=== PATIENT | male | born 1930 | race Caucasian/White ===

== ENCOUNTER 2016-04-19 08:40 | Emergency (ER) | payer MEDICARE, BC ==
--- NOTE | 2016-04-19 09:34 | RAD ---
INDICATION: Sharp RIGHT elbow pain and edema since yesterday. Limited range of motion on extension. No preceding injury. COMPARISON: No relevant prior exams available on the [facility] [place] PACS. TECHNIQUE: AP, lateral, and oblique views RIGHT elbow. REPORT: Normal articular alignment. Displaced fat pads indicating joint effusion. Diffuse moderately severe osteophytosis and mild joint space narrowing. 1.5 cm osteochondral loose body at the olecranon fossa which would account for limitation in extension. Moderate enthesophyte at the triceps insertion on the olecranon process. Negative for fracture. Moderate nonfocal soft tissue swelling. IMPRESSION: Osteoarthritis. Osteochondral loose body at the olecranon fossa would account for limitation in extension. Joint effusion.
[2016-04-19 09:59] LABS: Hematocrit 39 % (42-52); Hemoglobin 13.1 g/dl (14.0-18.0); Mean Corpuscular HGB Conc 33 g/dl (31-36); Mean Corpuscular Hemoglobin 31 pg (27-31); Mean Corpuscular Volume 93 fL (80-94); Mean Platelet Volume 7 um3 (7.4-10.4); Red Blood Count 4.26 10^6/ul (4.0-5.4); Red Cell Distribution Width 14 % (10.5-15); White Blood Count 10.3 10^3/ul (3.5-10.8)
[2016-04-19 10:11] LABS: Albumin 3.8 g/dL (3.2-5.2); BUN/Creatinine Ratio 20.6 (8-20); C Reactive Protein 36.17 mg/L (< 5.00); Calcium 9.1 mg/dL (8.6-10.3); EGFR African American 94.8 (>60); EGFR Non-African American 73.7 (>60); Globulin 3.3 g/dL (2-4); Potassium 4.5 mmol/L (3.5-5.0); Total Bilirubin 0.6 mg/dL (0.2-1.0); Total Protein 7.1 g/dL (6.4-8.9); Uric Acid 4.1 mg/dL (4.4-7.6)
[2016-04-19] MEDS ORDERED: oxyCODONE/Acetamin 5/325 MG* TAB PO ONE (10:34)
[2016-04-19] MEDS ORDERED: Ketorolac INJ* 30 MG/ML 1 ML VIAL IV PUSH ONE (10:34)
[2016-04-19 11:00] LABS: Erythrocyte Sed Rate 52 mm/Hr (0-40)
[2016-04-19 12:04] VITALS: BP 130/94
--- NOTE | 2016-04-19 12:09 | ED ---
Chinyere Kuhn Alok, scribed for Raji Medellin MD on 04/19/16 at 0950 . Upper Extremity Pain - HPI Summary HPI Summary: 86 y/o male with PMHx of gout 5 years ago presents to the ED with a sharp pain in his RUE from his elbow to his hand. This pain beginning yesterday was constant throughout the night and is aggravated by palpation. Pt denies any fever, chills, or ROJAS. In addition to gout, PMHx includes DM, HLD, and HTN. - History of Current Complaint Chief Complaint: EDExtremityUpper Stated Complaint: RT ELBOW PAIN Time Seen by Provider: 04/19/16 08:48 Hx Obtained From: Patient Onset/Duration: Started Days Ago, Atraumatic, Still Present Timing: Constant Severity Initially: Moderate Severity Currently: Moderate Pain Location: Arm - Right Character: Sharp Aggravating Factor(s): Other - palpation Alleviating Factor(s): Nothing Associated Signs & Symptoms: Positive: Other - Negative: Chills, ROJAS. Negative: Fever - Allergies/Home Medications Allergies/Adverse Reactions: Allergies Allergy/AdvReac Type Severity Reaction Status Date / Time No Known Allergies Allergy Verified 01/20/16 10:47 PMH/Surg Hx/FS Hx/Imm Hx Endocrine/Hematology History: Reports: Hx Anticoagulant Therapy - ASA, Hx Diabetes - lantus, metformin Cardiovascular History: Reports: Hx Hypercholesterolemia, Hx Hypertension Denies: Hx Congestive Heart Failure, Other Cardiovascular Problems/Disorders Respiratory History: Reports: Hx Pneumonia, Other Respiratory Problems/ Disorders - h/o pneumonia Denies: Hx Asthma, Hx Chronic Obstructive Pulmonary Disease (COPD) GI History: Denies: Other GI Disorders History: Denies: Hx Renal Disease Musculoskeletal History: Reports: Hx Arthritis - RIGHT KNEE, SHOULDERS, Hx Gout Sensory History: Reports: Hx Cataracts - both eyes, awaiting surgery, Hx Contacts or Glasses Denies: Hx Eye Injury, Hx Eye Prosthesis, Hx Glaucoma, Hx Legally Blind, Hx Macular Degeneration, Hx Vision Problem, Hx Deafness, Hx Hearing Aid, Hx Hearing Problem, Other Sensory Impairments Opthamlomology History: Reports: Hx Cataracts - both eyes, awaiting surgery, Hx Contacts or Glasses Denies: Hx Eye Injury, Hx Eye Prosthesis, Hx Glaucoma, Hx Legally Blind, Hx Macular Degeneration, Hx Vision Problem, Other Sensory Impairments Neurological History: Denies: Hx Dementia - Surgical History Surgery Procedure, Year, and Place: ARTHROSCOPIC SURGERIES ON KNEES 10 YRS AGO Hx Anesthesia Reactions: No - Immunization History Date of Tetanus Vaccine: PT STATES UNSURE Date of Influenza Vaccine: NONE Infectious Disease History: Denies: Hx Clostridium Difficile, Hx Hepatitis, Hx Human Immunodeficiency Virus (HIV), Hx of Known/Suspected MRSA, Hx Shingles, Hx Tuberculosis, Hx Known/ Suspected VRE, Hx Known/Suspected VRSA, History Other Infectious Disease, Traveled Outside the [place] in Last 30 Days - Family History Known Family History: Positive: Diabetes - Mother Negative: Cardiac Disease - Social History Alcohol Use: None Substance Use Type: Reports: None Smoking Status (MU): Never Smoked Tobacco Review of Systems Negative: Fever, Chills Positive: Other - RUE pain Negative: Headache All Other Systems Reviewed And Are Negative: Yes Physical Exam Triage Information Reviewed: Yes Vital Signs On Initial Exam: Initial Vitals Pulse Resp BP 81 16 140/69 04/19/16 10:50 04/19/16 10:50 04/19/16 10:50 Vital Signs Reviewed: Yes Appearance: Positive: Well-Appearing, No Pain Distress, Well-Nourished Skin: Positive: Warm, Skin Color Reflects Adequate Perfusion, Dry Head/Face: Positive: Normal Head/Face Inspection Eyes: Positive: Normal, EOMI, ELVIE ENT: Positive: Normal ENT inspection Neck: Positive: Supple, Nontender Respiratory/Lung Sounds: Positive: Clear to Auscultation, Breath Sounds Present Cardiovascular: Positive: Normal, RRR Abdomen Description: Positive: Nontender, Soft Bowel Sounds: Positive: Present Musculoskeletal: Positive: Limited @ - RUE ROM limited, Edema Right, Other - RUE erythema Neurological: Positive: Normal, Sensory/Motor Intact, Alert, Oriented to Person Place, Time Psychiatric: Positive: Normal, Affect/Mood Appropriate Diagnostics - Vital Signs Vital Signs Temp Pulse Resp BP Pulse Ox 04/19/16 12:05 97.3 F 04/19/16 12:00 72 94 04/19/16 11:59 130/94 04/19/16 10:50 81 16 140/69 - Laboratory Lab Results: Lab Results 04/19/16 04/19/16 04/19/16 Range/Units 09:40 09:40 09:40 WBC 10.3 (3.5-10.8) 10^3/ul RBC 4.26 (4.0-5.4) 10^6/ul Hgb 13.1 L (14.0-18.0) g/dl Hct 39 L (42-52) % MCV 93 (80-94) fL MCH 31 (27-31) pg MCHC 33 (31-36) g/dl RDW 14 (10.5-15) % Plt Count 205 (150-450) 10^3/ul MPV 7 L (7.4-10.4) um3 Neut % (Auto) 71.9 (38-83) % Lymph % (Auto) 18.1 L (25-47) % [place] % (Auto) 9.7 H (1-9) % Eos % (Auto) 0.2 (0-6) % Baso % (Auto) 0.1 (0-2) % Absolute Neuts (auto) 7.4 (1.5-7.7) 10^3/ul Absolute Lymphs (auto) 1.9 (1.0-4.8) 10^3/ul Absolute Monos (auto) 1.0 H (0-0.8) 10^3/ul Absolute Eos (auto) 0 (0-0.6) 10^3/ul Absolute Basos (auto) 0 (0-0.2) 10^3/ul Absolute Nucleated RBC 0 10^3/ul Nucleated RBC % 0 ESR 52 H (0-40) mm/Hr Sodium 132 L (133-145) mmol/L Potassium 4.5 (3.5-5.0) mmol/L Chloride 100 L (101-111) mmol/L Carbon Dioxide 25 (22-32) mmol/L Anion Gap 7 (2-11) mmol/L BUN 20 (6-24) mg/dL Creatinine 0.97 (0.67-1.17) mg/dL Est GFR ( Amer) 94.8 (>60) Est GFR (Non-Af Amer) 73.7 (>60) BUN/Creatinine Ratio 20.6 H (8-20) Glucose 210 H (70-100) mg/dL Lactic Acid 0.7 (0.5-2.0) mmol/L Uric Acid 4.1 L (4.4-7.6) mg/dL Calcium 9.1 (8.6-10.3) mg/dL Total Bilirubin 0.60 (0.2-1.0) mg/dL AST 15 (13-39) U/L ALT 9 (7-52) U/L Alkaline Phosphatase 50 (34-104) U/L C-Reactive Protein 36.17 H (< 5.00) mg/L Total Protein 7.1 (6.4-8.9) g/dL Albumin 3.8 (3.2-5.2) g/dL Globulin 3.3 (2-4) g/dL Albumin/Globulin Ratio 1.2 (1-3) Result Diagrams: 04/19/16 09:40 04/19/16 09:40 Lab Statement: Any lab studies that have been ordered have been reviewed, and results considered in the medical decision making process. - Radiology Elbow XRAY Xray Interpretation: Positive (See Comments) - IMPRESSION: Osteoarthritis. Osteochondral loose body at the olecranon fossa would account for limitation in extension. Joint effusion. Radiology Interpretation Completed By: Radiologist Course/Dx - Course Course Of Treatment: 86 y/o male with PMHx of gout 5 years ago presents to the ED with a sharp pain in his RUE from his elbow to his hand. This pain beginning yesterday was constant throughout the night and is aggravated by palpation. Pt denies any fever, chills, or ROJAS. In addition to gout, PMHx includes DM, HLD, and HTN. Assessment/Plan: Blood work shows mild anemia sodium L, 132 glucose 210 H, CRP 36.17 H elbow XRAY IMPRESSION: Osteoarthritis. Osteochondral loose body at the olecranon fossa would account for limitation in extension. Joint effusion. Pt was will be diagnosed with an episode of gout. Was given Toradol and Percocet for pain. Low suspicion of cellulitis due to elevated WBC. However recommend follow up with PCP tomorrow. In case of any edema, ertythema, or pain, will need prescription for antibiotics by PCP or ED with further assessment. I discussed all the findings and test results with the patient. Patient was instructed to return to the emergency room immediately if any of the symptoms return or worsens. Plan of care was discussed with the patient and understands and agrees. All questions were answered at patient satisfaction. There were no further complaints or concerns. Lung exam before discharge: CTA B/L. Good air exchange. No wheezing or crackles heard. CVS: S1 and S2 present. No murmurs appreciated. Patient is alert and oriented x 3. Patient is hemodynamically stable. 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 Please return to PCP or ED in case of any swelling, erythema or pain for further assessment. The documentation as recorded by the Chinyere mccabe Alok accurately reflects the service I personally performed and the decisions made by , Raji Medellin MD.
== END 2016-04-19 12:05 | disposition home or self-care (01) ==
LOC: ED 08:40
DX: M10.021 Idiopathic gout, right elbow (principal); M79.601 Pain in right arm
CPT/HCPCS: 36415; 80053; 83605; 84550; 85025; 85652; 86140; 99282; A9270-GY; J1885

== ENCOUNTER 2016-08-14 07:27 | Emergency (ER) | payer MEDICARE, BC ==
[2016-08-14] MEDS ORDERED: Cephalexin CAP* 500 MG PO ONE (08:21)
--- NOTE | 2016-08-14 08:29 | ED ---
Maggi Kuhn Rebecca, scribed for Sabas Sorto MD on 08/14/16 at 0824 . Lower Extremity - HPI Summary HPI Summary: Pt is an 86 y/o M who presents to ED c/o L ankle pain, erythema and swelling s/ p bug bite/sting. Reports he was bit on Saturday afternoon (3 days ago) and washed the area with alcohol after the bite occurred. Pain is currently moderate , ranked 6/10 and discrete to the L ankle without radiation. Denies fever, chills. PMHx DM. NKDA. - History of Current Complaint Chief Complaint: EDSoftTissueLowExtr Stated Complaint: LT ANKLE PAIN Time Seen by Provider: 08/14/16 08:12 Hx Obtained From: Patient Onset of Pain: Days - 3 days Onset/Duration: Still Present Severity Currently: Moderate Pain Intensity: 6 Pain Scale Used: 0-10 Numeric Timing: Constant Location: Is Discrete @ - L ankle Associated Signs And Symptoms: Positive: Swelling, Redness. Negative: Fever - Allergies/Home Medications Allergies/Adverse Reactions: Allergies Allergy/AdvReac Type Severity Reaction Status Date / Time No Known Allergies Allergy Verified 01/20/16 10:47 PMH/Surg Hx/FS Hx/Imm Hx Endocrine/Hematology History: Reports: Hx Anticoagulant Therapy - ASA, Hx Diabetes - lantus, metformin Cardiovascular History: Reports: Hx Hypercholesterolemia, Hx Hypertension Denies: Hx Congestive Heart Failure, Other Cardiovascular Problems/Disorders Respiratory History: Reports: Hx Pneumonia, Other Respiratory Problems/ Disorders - h/o pneumonia Denies: Hx Asthma, Hx Chronic Obstructive Pulmonary Disease (COPD) GI History: Denies: Other GI Disorders History: Denies: Hx Renal Disease Musculoskeletal History: Reports: Hx Arthritis - RIGHT KNEE, SHOULDERS, Hx Gout Sensory History: Reports: Hx Cataracts - both eyes, awaiting surgery, Hx Contacts or Glasses Denies: Hx Eye Injury, Hx Eye Prosthesis, Hx Glaucoma, Hx Legally Blind, Hx Macular Degeneration, Hx Vision Problem, Hx Deafness, Hx Hearing Aid, Hx Hearing Problem, Other Sensory Impairments Opthamlomology History: Reports: Hx Cataracts - both eyes, awaiting surgery, Hx Contacts or Glasses Denies: Hx Eye Injury, Hx Eye Prosthesis, Hx Glaucoma, Hx Legally Blind, Hx Macular Degeneration, Hx Vision Problem, Other Sensory Impairments Neurological History: Denies: Hx Dementia - Surgical History Surgery Procedure, Year, and Place: ARTHROSCOPIC SURGERIES ON KNEES 10 YRS AGO Hx Anesthesia Reactions: No - Immunization History Date of Tetanus Vaccine: PT STATES UNSURE Date of Influenza Vaccine: NONE Infectious Disease History: No Infectious Disease History: Denies: Hx Clostridium Difficile, Hx Hepatitis, Hx Human Immunodeficiency Virus (HIV), Hx of Known/Suspected MRSA, Hx Shingles, Hx Tuberculosis, Hx Known/ Suspected VRE, Hx Known/Suspected VRSA, History Other Infectious Disease, Traveled Outside the [place] in Last 30 Days - Family History Known Family History: Positive: Diabetes - Mother Negative: Cardiac Disease - Social History Alcohol Use: None Substance Use Type: Reports: None Smoking Status (MU): Former Smoker Review of Systems Negative: Fever, Chills Positive: Other - L ankle pain s/p bug bite Positive: Other - L ankle swelling and erythema s/p bug bite All Other Systems Reviewed And Are Negative: Yes Physical Exam - Summary Physical Exam Summary: General: well-appearing, no pain distress Skin: warm, dry, on the medial malleolus of the L ankle there is a 4 mm scab, some mild swelling and erythema with streaking 10 cm proximal Head: normal Eyes: EOMI, ELVIE ENT: normal Neck: supple, nontender Respiratory: CTA, breath sounds present Cardiovascular: RRR Abdomen: soft, nontender Bowel: present Musculoskeletal: Strength/ROM intact Neuro: normal, sensory/motor intact, A&O x3 Psych: affect/mood appropriate Triage Information Reviewed: Yes Vital Signs On Initial Exam: Initial Vitals Temp Pulse Resp BP Pulse Ox 97.8 F 89 16 130/66 96 08/14/16 07:29 08/14/16 07:29 08/14/16 07:29 08/14/16 07:29 08/14/16 07:29 Vital Signs Reviewed: Yes - [place] Coma Scale Coma Scale Total: 15 Diagnostics - Vital Signs Vital Signs Temp Pulse Resp BP Pulse Ox 08/14/16 07:29 97.8 F 89 16 130/66 96 - Laboratory Lab Statement: Any lab studies that have been ordered have been reviewed, and results considered in the medical decision making process. Lower Extremity Course/Dx - Course Course Of Treatment: NO CRITICAL CARE TIME. DISCHARGE HOME STABLE. - Diagnoses Provider Diagnoses: Cellulitis of left ankle Discharge - Discharge Plan Condition: Stable Disposition: HOME Prescriptions: Cephalexin CAP* [Keflex CAP*] 500 mg PO QID #40 cap Patient Education Materials: Cellulitis (ED) Referrals: Aurea Mcintyre MD [Primary Care Provider] - Additional Instructions: FOLLOW UP WITH YOUR DOCTOR. RETURN TO THE EMERGENCY DEPARTMENT FOR ANY WORSENING OF YOUR CONDITION; SPREAD OF INFECTION, YOU FEEL ILL, FEVER OR QUESTIONS OR CONCERNS. The documentation as recorded by the Maggi mccabe Rebecca accurately reflects the service I personally performed and the decisions made by me, Sabas Sorto MD.
[2016-08-14 09:45] VITALS: BP 130/72
== END 2016-08-14 09:45 | disposition home or self-care (01) ==
LOC: ED 07:27
DX: L03.116 Cellulitis of left lower limb (principal); S90.562A Insect bite (nonvenomous), left ankle, initial encounter; M25.572 Pain in left ankle and joints of left foot; Z87.891 Personal history of nicotine dependence; W57.XXXA Bitten or stung by nonvenomous insect and other nonvenomous arthropods, initial encounter; Y93.9 Activity, unspecified; Y92.9 Unspecified place or not applicable
CPT/HCPCS: 99282; A9270-GY

== ENCOUNTER 2016-09-07 16:29 | Emergency (ER) | payer MEDICARE, BC ==
[2016-09-07] MEDS ORDERED: Cephalexin CAP* 500 MG PO ONE (17:14)
[2016-09-07] MEDS ORDERED: Sulfamethox/Trimethoprim DS 800/160* TAB PO ONE (17:14)
--- NOTE | 2016-09-07 17:21 | ED ---
Upper Extremity Pain - HPI Summary HPI Summary: 86M presents with redness near right elbow for two days. He says that is started as a small area of redness underneath his elbow and has since spread. He now has pain half way down his forearm and half way up his arm. He has limited ROM of elbow due to swelling but not due to pain. He has not taken anything for pain. He does have a history of gout. He states he has had this before but that it went away on its own. He denies any injury. He denies any bug bites or abrasion to the area. He is DM. He is right handed. - History of Current Complaint Chief Complaint: EDExtremityUpper Stated Complaint: ELBOW INJURY Time Seen by Provider: 09/07/16 16:42 - Allergies/Home Medications Allergies/Adverse Reactions: Allergies Allergy/AdvReac Type Severity Reaction Status Date / Time No Known Allergies Allergy Verified 01/20/16 10:47 PMH/Surg Hx/FS Hx/Imm Hx Endocrine/Hematology History: Reports: Hx Anticoagulant Therapy - ASA, Hx Diabetes - lantus, metformin Cardiovascular History: Reports: Hx Hypercholesterolemia, Hx Hypertension Denies: Hx Congestive Heart Failure, Other Cardiovascular Problems/Disorders Respiratory History: Reports: Hx Pneumonia, Other Respiratory Problems/ Disorders - h/o pneumonia Denies: Hx Asthma, Hx Chronic Obstructive Pulmonary Disease (COPD) GI History: Denies: Other GI Disorders History: Denies: Hx Renal Disease Musculoskeletal History: Reports: Hx Arthritis - RIGHT KNEE, SHOULDERS, Hx Gout Sensory History: Reports: Hx Cataracts - both eyes, awaiting surgery, Hx Contacts or Glasses Denies: Hx Eye Injury, Hx Eye Prosthesis, Hx Glaucoma, Hx Legally Blind, Hx Macular Degeneration, Hx Vision Problem, Hx Deafness, Hx Hearing Aid, Hx Hearing Problem, Other Sensory Impairments Opthamlomology History: Reports: Hx Cataracts - both eyes, awaiting surgery, Hx Contacts or Glasses Denies: Hx Eye Injury, Hx Eye Prosthesis, Hx Glaucoma, Hx Legally Blind, Hx Macular Degeneration, Hx Vision Problem, Other Sensory Impairments Neurological History: Denies: Hx Dementia - Surgical History Surgery Procedure, Year, and Place: ARTHROSCOPIC SURGERIES ON KNEES 10 YRS AGO Hx Anesthesia Reactions: No - Immunization History Date of Tetanus Vaccine: PT STATES UNSURE Date of Influenza Vaccine: NONE Infectious Disease History: No Infectious Disease History: Denies: Hx Clostridium Difficile, Hx Hepatitis, Hx Human Immunodeficiency Virus (HIV), Hx of Known/Suspected MRSA, Hx Shingles, Hx Tuberculosis, Hx Known/ Suspected VRE, Hx Known/Suspected VRSA, History Other Infectious Disease, Traveled Outside the [place] in Last 30 Days - Family History Known Family History: Positive: None - denies family history of medical problems., Diabetes - Mother Negative: Cardiac Disease - Social History Alcohol Use: None Substance Use Type: Reports: None Smoking Status (MU): Former Smoker Review of Systems Negative: Fever Negative: Chest Pain Negative: Shortness Of Breath Positive: Edema - right elbow Positive: Rash All Other Systems Reviewed And Are Negative: Yes Physical Exam Triage Information Reviewed: Yes Vital Signs On Initial Exam: Initial Vitals Temp Pulse Resp BP Pulse Ox 98.5 F 80 20 141/61 96 09/07/16 16:34 09/07/16 16:34 09/07/16 16:34 09/07/16 16:34 09/07/16 16:34 Vital Signs Reviewed: Yes Appearance: Positive: Well-Appearing Skin: Positive: Other - 8cm by 5cm area of erythema and edema across right elbow that is warm to touch and extends beyond elbow Head/Face: Positive: Normal Head/Face Inspection Eyes: Positive: Normal, Conjunctiva Clear Respiratory/Lung Sounds: Positive: Clear to Auscultation, Breath Sounds Present Cardiovascular: Positive: Normal, RRR Musculoskeletal: Positive: Limited @ - able to bend it to greater than 90 and almost 180 but swelling limits movement, no pain with passive ROM, Edema Right - elbow mild, Other - good pulses, capillary refill< 2secs Diagnostics - Vital Signs Vital Signs Temp Pulse Resp BP Pulse Ox 09/07/16 16:58 98.5 F 80 20 141/61 96 09/07/16 16:34 98.5 F 80 20 141/61 96 - Laboratory Lab Statement: Any lab studies that have been ordered have been reviewed, and results considered in the medical decision making process. Course/Dx - Course Course Of Treatment: 86M presents with redness near right elbow for two days. He says that is started as a small area of redness underneath his elbow and has since spread. He now has pain half way down his forearm and half way up his arm. He has limited ROM of elbow due to swelling but not due to pain. He has not taken anything for pain. He does have a history of gout. He states he has had this before but that it went away on its own. He denies any injury. He denies any bug bites or abrasion to the area. He is DM. on exam area of erythema 3cm above elbow joint to 4cm below elbow joint that is warm to touch. mild edema around entire elbow. neg pain with passive motion. diff include cellulitis, gout, or septic joint. suspect likely just cellulitic as this point due to mild pain and no pain with passive movement and area of erythema is more extensive that just elbow joint. will place on bactrim and keflex and have follow up with ortho. patient understands and agrees with plan. - Diagnoses Differential Diagnosis/HQI/PQRI: Positive: Bursitis, Septic Arthritis, Other - gout, cellulitis Provider Diagnoses: Cellulitis of right upper extremity Discharge - Discharge Plan Condition: Good Disposition: HOME Patient Education Materials: Cellulitis (ED) Referrals: Aurea Mcintyre MD [Primary Care Provider] - Stanley Lobo MD [Medical Doctor] - Additional Instructions: Take Keflex three times a day for 10 days, first dose given in ED Take Bactrim twice a day for 10 days, first dose given in ED Place ice on area Follow up with primary or ortho on Saturday Return to ED if develop fever, area of redness spreads, or any new or worsening symptoms
[2016-09-07 18:24] VITALS: BP 129/66
== END 2016-09-07 18:28 | disposition home or self-care (01) ==
LOC: ED 16:29
DX: L03.113 Cellulitis of right upper limb (principal); R21 Rash and other nonspecific skin eruption; Z87.891 Personal history of nicotine dependence
CPT/HCPCS: 99282; A9270-GY

== ENCOUNTER 2016-10-25 22:26 | Emergency (ER) | payer MEDICARE, BC ==
[2016-10-25] MEDS ORDERED: Baclofen TAB* 10 MG PO ONE (22:53)
[2016-10-25] MEDS ORDERED: traMADol TAB* 50 MG PO ONE (22:53)
[2016-10-25 23:25] VITALS: BP 140/80
--- NOTE | 2016-10-26 00:54 | ED ---
Jesus Kuhn Angela, scribed for Cassandra Clifford MD on 10/25/16 at 2248 . Upper Extremity Pain - HPI Summary HPI Summary: Pt is a 86 y/o male presenting to [facility] c/o right shoulder pain s/p lifting his up after falling yesterday. Pt reports that his pain is on his right shoulder and radiates across his back. His pain is aggravated by movement and taking a deep breath. Pt notes he has limited ROM secondary to pain. He denies SOB or chest pain. PMHx: HTN, diabetes, high cholesterol, right knee replacement. 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 - History of Current Complaint Chief Complaint: EDExtremityUpper Stated Complaint: RT SHOULDER PAIN Hx Obtained From: Patient Onset/Duration: Started Hours Ago Pain Location: Other: - right shoulder pain Character: Aching Aggravating Factor(s): Movement, Other - taking a deep breath Alleviating Factor(s): Nothing Associated Signs & Symptoms: Positive: Back Pain. Negative: Swelling, Redness, Weakness, Numbness/Tingling, Chest Pain, SOB, Neck Pain - Allergies/Home Medications Allergies/Adverse Reactions: Allergies Allergy/AdvReac Type Severity Reaction Status Date / Time No Known Allergies Allergy Verified 10/25/16 22:31 PMH/Surg Hx/FS Hx/Imm Hx Endocrine/Hematology History: Reports: Hx Anticoagulant Therapy - ASA, Hx Diabetes - lantus, metformin Cardiovascular History: Reports: Hx Hypercholesterolemia, Hx Hypertension Denies: Hx Congestive Heart Failure, Other Cardiovascular Problems/Disorders Respiratory History: Reports: Hx Pneumonia, Other Respiratory Problems/ Disorders - h/o pneumonia Denies: Hx Asthma, Hx Chronic Obstructive Pulmonary Disease (COPD) GI History: Denies: Other GI Disorders History: Denies: Hx Renal Disease Musculoskeletal History: Reports: Hx Arthritis - RIGHT KNEE, SHOULDERS, Hx Gout Sensory History: Reports: Hx Cataracts - both eyes, awaiting surgery, Hx Contacts or Glasses Denies: Hx Eye Injury, Hx Eye Prosthesis, Hx Glaucoma, Hx Legally Blind, Hx Macular Degeneration, Hx Vision Problem, Hx Deafness, Hx Hearing Aid, Hx Hearing Problem, Other Sensory Impairments Opthamlomology History: Reports: Hx Cataracts - both eyes, awaiting surgery, Hx Contacts or Glasses Denies: Hx Eye Injury, Hx Eye Prosthesis, Hx Glaucoma, Hx Legally Blind, Hx Macular Degeneration, Hx Vision Problem, Other Sensory Impairments Neurological History: Denies: Hx Dementia - Surgical History Surgery Procedure, Year, and Place: ARTHROSCOPIC SURGERIES ON KNEES 10 YRS AGO Hx Anesthesia Reactions: No - Immunization History Date of Tetanus Vaccine: PT STATES UNSURE Date of Influenza Vaccine: NONE Infectious Disease History: No Infectious Disease History: Denies: Hx Clostridium Difficile, Hx Hepatitis, Hx Human Immunodeficiency Virus (HIV), Hx of Known/Suspected MRSA, Hx Shingles, Hx Tuberculosis, Hx Known/ Suspected VRE, Hx Known/Suspected VRSA, History Other Infectious Disease, Traveled Outside the [place] in Last 30 Days - Family History Known Family History: Positive: Diabetes - Mother Negative: Cardiac Disease - Social History Lives: With Family - Alcohol Use: None Substance Use Type: Reports: None Smoking Status (MU): Former Smoker Review of Systems Negative: Fever, Chills Eyes: Negative ENT: Negative Negative: Palpitations, Chest Pain Negative: Shortness Of Breath Gastrointestinal: Negative Genitourinary: Negative Positive: Other - right shoulder pain Skin: Negative Neurological: Negative All Other Systems Reviewed And Are Negative: Yes Physical Exam Triage Information Reviewed: Yes Vital Signs On Initial Exam: Initial Vitals Temp Pulse Resp BP Pulse Ox 99.0 F 93 18 147/116 97 10/25/16 22:28 10/25/16 22:28 10/25/16 22:28 10/25/16 22:28 10/25/16 22:28 Vital Signs Reviewed: Yes Appearance: Positive: Well-Appearing, No Pain Distress Skin: Positive: Warm, Skin Color Reflects Adequate Perfusion, Dry Eyes: Positive: EOMI, ELVIE ENT: Positive: Pharynx normal, TMs normal Neck: Positive: Supple, Nontender Respiratory/Lung Sounds: Positive: Clear to Auscultation, Breath Sounds Present. Negative: Rales, Rhonchi, Wheezes Cardiovascular: Positive: RRR. Negative: Murmur, Rub, Other - gallops Abdomen Description: Positive: Nontender, Soft. Negative: Distended, Guarding, Other: - rebound Bowel Sounds: Positive: Present Musculoskeletal: Positive: Other - There are trigger points by the scapula, mostly medially on both sides. There is muscle spasm with some tenderness.. Negative: Edema Left, Edema Right Neurological: Positive: Sensory/Motor Intact, Alert, Oriented to Person Place, Time, CN Intact II-III Psychiatric: Positive: Affect/Mood Appropriate Diagnostics - Vital Signs Vital Signs Temp Pulse Resp BP Pulse Ox 10/25/16 22:32 99.0 F 96 18 147/116 97 10/25/16 22:28 99.0 F 93 18 147/116 97 - Laboratory Lab Statement: Any lab studies that have been ordered have been reviewed, and results considered in the medical decision making process. Course/Dx - Course Course Of Treatment: 86 yo male who brought his after she fell today, and her lifted her resulting in pain over upper back bilaterally worse on right then left. On exam pt had trigger points/spasmed muscles with pain over b/l medial scapulas, vss - Diagnoses Provider Diagnoses: Upper back strain Discharge - Discharge Plan Condition: Stable Disposition: HOME Patient Education Materials: Muscle Strain (ED) Referrals: Aurea Mcintyre MD [Primary Care Provider] - The documentation as recorded by the Jesus mccabe Angela accurately reflects the service I personally performed and the decisions made by me, Cassandra Clifford MD.
== END 2016-10-25 23:20 | disposition home or self-care (01) ==
LOC: ED 22:26
DX: S29.012A Strain of muscle and tendon of back wall of thorax, initial encounter (principal); Z87.891 Personal history of nicotine dependence; W19.XXXA Unspecified fall, initial encounter; Y93.9 Activity, unspecified; Y92.9 Unspecified place or not applicable; Y99.9 Unspecified external cause status
CPT/HCPCS: 99282; A9270-GY

== ENCOUNTER 2016-12-23 13:30 | Emergency (ER) | payer MEDICARE, BC ==
[2016-12-23] MEDS ORDERED: NS 0.9% 1000 ML* 1,000 ML IV ONE (14:09)
[2016-12-23] MEDS ORDERED: ceFAZolin 1 GM ADVAN(*) 1 GM in NS 0.9% 50 ML* 50 ML IVPB ONE (14:10)
[2016-12-23 15:02] LABS: Hematocrit 38 % (42-52); Hemoglobin 12.6 g/dl (14.0-18.0); Mean Corpuscular HGB Conc 33 g/dl (31-36); Mean Corpuscular Hemoglobin 31 pg (27-31); Mean Corpuscular Volume 92 fL (80-94); Mean Platelet Volume 7 um3 (7.4-10.4); Red Blood Count 4.12 10^6/ul (4.0-5.4); Red Cell Distribution Width 14 % (10.5-15); White Blood Count 7.2 10^3/ul (3.5-10.8)
[2016-12-23 15:13] LABS: Albumin 3.6 g/dL (3.2-5.2); BUN/Creatinine Ratio 22.8 (8-20); C Reactive Protein 8.59 mg/L (< 5.00); Calcium 9.3 mg/dL (8.6-10.3); EGFR African American 90.5 (>60); EGFR Non-African American 70.4 (>60); Globulin 3.5 g/dL (2-4); Potassium 4.5 mmol/L (3.5-5.0); Total Bilirubin 0.3 mg/dL (0.2-1.0); Total Protein 7.1 g/dL (6.4-8.9)
[2016-12-23 17:42] VITALS: BP 138/68
--- NOTE | 2016-12-23 18:32 | ED ---
Bob uKhn SooYoung, scribed for Andriy Arnold MD on 12/23/16 at 1351 . Lower Extremity - HPI Summary HPI Summary: An 86 y/o M presents to ED with c/o RLE pain of calf first noticed today. Associated: RLE erythema on calf. Pt states he might have been scratching his legs while he slept. PMHx: HTN, DM. NKA. - History of Current Complaint Chief Complaint: EDExtremityLower Stated Complaint: RT LEG RASH Time Seen by Provider: 12/23/16 13:44 Hx Obtained From: Patient Onset of Pain: Immediate Onset/Duration: Still Present Severity Initially: Mild Severity Currently: Mild Pain Intensity: 0 Pain Scale Used: 0-10 Numeric Timing: Constant Location: Is Discrete @ - RLE Associated Signs And Symptoms: Positive: Redness - Allergies/Home Medications Allergies/Adverse Reactions: Allergies Allergy/AdvReac Type Severity Reaction Status Date / Time No Known Allergies Allergy Verified 12/23/16 13:39 PMH/Surg Hx/FS Hx/Imm Hx Previously Healthy: No Endocrine/Hematology History: Reports: Hx Anticoagulant Therapy - ASA, Hx Diabetes - lantus, metformin Cardiovascular History: Reports: Hx Hypercholesterolemia, Hx Hypertension Denies: Hx Congestive Heart Failure, Other Cardiovascular Problems/Disorders Respiratory History: Reports: Hx Pneumonia, Other Respiratory Problems/ Disorders - h/o pneumonia Denies: Hx Asthma, Hx Chronic Obstructive Pulmonary Disease (COPD) GI History: Denies: Other GI Disorders History: Denies: Hx Renal Disease Musculoskeletal History: Reports: Hx Arthritis - RIGHT KNEE, SHOULDERS, Hx Gout Sensory History: Reports: Hx Cataracts - both eyes, awaiting surgery, Hx Contacts or Glasses Denies: Hx Eye Injury, Hx Eye Prosthesis, Hx Glaucoma, Hx Legally Blind, Hx Macular Degeneration, Hx Vision Problem, Hx Deafness, Hx Hearing Aid, Hx Hearing Problem, Other Sensory Impairments Opthamlomology History: Reports: Hx Cataracts - both eyes, awaiting surgery, Hx Contacts or Glasses Denies: Hx Eye Injury, Hx Eye Prosthesis, Hx Glaucoma, Hx Legally Blind, Hx Macular Degeneration, Hx Vision Problem, Other Sensory Impairments Neurological History: Denies: Hx Dementia - Surgical History Surgery Procedure, Year, and Place: ARTHROSCOPIC SURGERIES ON KNEES 10 YRS AGO Hx Anesthesia Reactions: No - Immunization History Date of Tetanus Vaccine: PT STATES UNSURE Date of Influenza Vaccine: NONE Infectious Disease History: No Infectious Disease History: Denies: Hx Clostridium Difficile, Hx Hepatitis, Hx Human Immunodeficiency Virus (HIV), Hx of Known/Suspected MRSA, Hx Shingles, Hx Tuberculosis, Hx Known/ Suspected VRE, Hx Known/Suspected VRSA, History Other Infectious Disease, Traveled Outside the [place] in Last 30 Days - Family History Known Family History: Positive: Diabetes - Mother Negative: Cardiac Disease - Social History Occupation: Retired Lives: With Family Alcohol Use: None Hx Substance Use: No Substance Use Type: Reports: None Hx Tobacco Use: Yes Smoking Status (MU): Former Smoker Review of Systems Positive: Other - pos: pain to RLE Positive: Other - erythema to RLE All Other Systems Reviewed And Are Negative: Yes Physical Exam - Summary Physical Exam Summary: The patient is well-nourished in no acute distress and in no acute pain. The skin is warm and dry. Interior of RLE lower is diffusely erythematous with what appears to be scratch rodgers, it is mildly tender and mildly warm. HEENT: The head is normocephalic and atraumatic. The pupils are equal and reactive. The conjunctivae are clear and without drainage. Nares are patent and without drainage. Mouth reveals moist mucous membranes and the throat is without erythema and exudate. The external ears are intact. The ear canals are patent and without drainage. The tympanic membranes are intact. Neck is supple with full range of motion and non-tender. There are no carotid bruits. There is no neck vein distension. Respiratory: Chest is non-tender. Lungs are clear to auscultation and breath sounds are symmetrical and equal. Cardiovascular: Heart is regular rate and rhythm. There is no murmur or rub auscultated. There is no peripheral edema and pulses are symmetrical and equal. Abdomen: The abdomen is soft and non-tender. There are normal bowel sounds heard in all four quadrants and there is no organomegaly palpated. Musculoskeletal: There is no back pain noted. Extremities have full range of motion. There is good capillary refill. There is no peripheral edema or calf tenderness elicited. Neurological: Patient is alert and oriented to person, place and time. The patient has symmetrical motor strength in all four extremities. Cranial nerves are grossly intact. Deep tendon reflexes are symmetrical and equal in all four extremities. Psychiatric: The patient has an appropriate affect and does not exhibit any anxiety or depression. Triage Information Reviewed: Yes Vital Signs On Initial Exam: Initial Vitals Temp Pulse Resp BP Pulse Ox 97.6 F 90 16 130/64 97 12/23/16 13:37 12/23/16 13:37 12/23/16 13:37 12/23/16 13:37 12/23/16 13:37 Vital Signs Reviewed: Yes Diagnostics - Vital Signs Vital Signs Temp Pulse Resp BP Pulse Ox 12/23/16 13:37 97.6 F 90 16 130/64 97 - Laboratory Lab Results: Lab Results 12/23/16 12/23/16 Range/Units 14:31 14:31 WBC 7.2 (3.5-10.8) 10^3/ul RBC 4.12 (4.0-5.4) 10^6/ul Hgb 12.6 L (14.0-18.0) g/dl Hct 38 L (42-52) % MCV 92 (80-94) fL MCH 31 (27-31) pg MCHC 33 (31-36) g/dl RDW 14 (10.5-15) % Plt Count 312 (150-450) 10^3/ul MPV 7 L (7.4-10.4) um3 Neut % (Auto) 56.6 (38-83) % Lymph % (Auto) 34.4 (25-47) % Hancock % (Auto) 6.0 (1-9) % Eos % (Auto) 2.8 (0-6) % Baso % (Auto) 0.2 (0-2) % Absolute Neuts (auto) 4.1 (1.5-7.7) 10^3/ul Absolute Lymphs (auto) 2.5 (1.0-4.8) 10^3/ul Absolute Monos (auto) 0.4 (0-0.8) 10^3/ul Absolute Eos (auto) 0.2 (0-0.6) 10^3/ul Absolute Basos (auto) 0 (0-0.2) 10^3/ul Absolute Nucleated RBC 0 10^3/ul Nucleated RBC % 0 Sodium 135 (133-145) mmol/L Potassium 4.5 (3.5-5.0) mmol/L Chloride 103 (101-111) mmol/L Carbon Dioxide 28 (22-32) mmol/L Anion Gap 4 (2-11) mmol/L BUN 23 (6-24) mg/dL Creatinine 1.01 (0.67-1.17) mg/dL Est GFR ( Amer) 90.5 (>60) Est GFR (Non-Af Amer) 70.4 (>60) BUN/Creatinine Ratio 22.8 H (8-20) Glucose 276 H (70-100) mg/dL Calcium 9.3 (8.6-10.3) mg/dL Total Bilirubin 0.30 (0.2-1.0) mg/dL AST 12 L (13-39) U/L ALT 8 (7-52) U/L Alkaline Phosphatase 58 (34-104) U/L C-Reactive Protein 8.59 H (< 5.00) mg/L Total Protein 7.1 (6.4-8.9) g/dL Albumin 3.6 (3.2-5.2) g/dL Globulin 3.5 (2-4) g/dL Albumin/Globulin Ratio 1.0 (1-3) Result Diagrams: 12/23/16 14:31 12/23/16 14:31 Lab Statement: Any lab studies that have been ordered have been reviewed, and results considered in the medical decision making process. Lower Extremity Course/Dx - Course Course Of Treatment: Mr. Phoenix has had an itchy right lower leg for a few days and has been scratching at it. No it has gotten red and a bit painful. On exam he has developed a cellulitis. He was given his first dose of antibiotic here while labs were checked. He will be D/C'd to F/U. - Diagnoses Provider Diagnoses: Cellulitis Discharge - Discharge Plan Condition: Stable Disposition: HOME Prescriptions: Cephalexin CAP* [Keflex CAP*] 500 mg PO QID #40 cap diPHENhydraMINE CREAM 2%(NF) [Benadryl X-Strength CREAM 2 % (NF)] 1 applic TOPICAL TID #1 tube Patient Education Materials: Cephalexin (By mouth), Diphenhydramine (On the skin), Cellulitis (ED) Referrals: Aurea Mcintyre MD [Medical Doctor] - Additional Instructions: Please follow up with your primary care provider in the next 2-3 days. Please return to the ED if you experience new or worsening symptoms. The documentation as recorded by the Bob mccabe SooYoung accurately reflects the service I personally performed and the decisions made by me, Andriy Arnold MD.
== END 2016-12-23 17:41 | disposition home or self-care (01) ==
LOC: ED 13:30
DX: L03.115 Cellulitis of right lower limb (principal)
CPT/HCPCS: 36415; 80053; 85025; 86140; 87040; 99282; J0690

== ENCOUNTER 2017-03-10 09:17 | Inpatient (IN) | payer MEDICARE, BC ==
[2017-03-10] MEDS ORDERED: Ondansetron INJ* 2 MG/ML VIAL IV ONE (09:45)
[2017-03-10] MEDS ORDERED: Morphine INJ* 4 MG/ML 1 ML CARPUJECT IV ONE (09:45)
[2017-03-10] MEDS ORDERED: cefTRIAXone(*) 1 GM in NS 0.9% 50 ML* 50 ML IVPB ONE (09:47)
[2017-03-10 10:19] LABS: ABS Basophils 0.1 10^3/ul (0-0.2); ABS Eosinophils 0.1 10^3/ul (0-0.6); ABS Monocytes 1.1 10^3/ul (0-0.8); ABS Neutrophils 7.5 10^3/ul (1.5-7.7); ABS Nucleated RBC 0 10^3/ul; Eosinophil % 0.7 % (0-6); Hematocrit 41 % (42-52); Hemoglobin 13.6 g/dl (14.0-18.0); Lymphocyte % 18.6 % (25-47); Mean Corpuscular HGB Conc 34 g/dl (31-36); Mean Corpuscular Hemoglobin 31 pg (27-31); Mean Corpuscular Volume 92 fL (80-94); Mean Platelet Volume 7 um3 (7.4-10.4); Nucleated Red Blood Cells % 0; Platelet Count 233 10^3/ul (150-450); Red Blood Count 4.42 10^6/ul (4.0-5.4); Red Cell Distribution Width 15 % (10.5-15); White Blood Count 10.7 10^3/ul (3.5-10.8)
[2017-03-10 10:46] LABS: INR 1.01 (0.77-1.02)
[2017-03-10 11:09] LABS: EGFR Non-African American 81.4 (>60)
--- NOTE | 2017-03-10 11:19 | RAD ---
INDICATION: Pain and swelling. Arm pain and swelling COMPARISON: None TECHNIQUE: Duplex interrogation of the left upperextremity was performed. FINDINGS: Deep veins: The visualized jugular, visualized subclavian, axillary, brachial, radial, and ulnar veins are patent. There is normal compressibility, augmentation, and phasic flow. Superficial veins: There are no findings of superficial thrombophlebitis. The basilic vein is patent. The cephalic vein small in caliber. Soft tissues:There are no soft tissue abnormalities. IMPRESSION: No evidence of deep venous thrombosis
[2017-03-10 12:38] LABS: Urine Appearance Clear; Urine Blood 1+ (Negative); Urine Color Yellow; Urine Ketones Negative (Negative); Urine Protein Negative (Negative); Urine Specific Gravity 1.019 (1.010-1.030); Urine Urobilinogen Negative (Negative)
[2017-03-10] MEDS ORDERED: traMADol TAB* 50 MG PO PRN (12:41)
[2017-03-10] MEDS ORDERED: Acetaminophen TAB* 325 MG PO PRN (12:41)
[2017-03-10] MEDS ORDERED: oxyCODONE/Acetamin 5/325 MG* TAB PO PRN (12:52)
[2017-03-10] MEDS ORDERED: Dextrose 50% Syringe 50 ML* 25 GM/50 ML SYRINGE IV PUSH PRN (12:59)
[2017-03-10] MEDS ORDERED: Vancomycin(*) 1,250 MG in NS 0.9% 250 ML* 250 ML IVPB ONE (14:00)
[2017-03-10] MEDS: Heparin VIAL(*) 5000 UNITS/ML VIAL (FIVE THOUSAND) SUBCUT SCH ×2 (14:54→21:59)
[2017-03-10] MEDS: Insulin LISPRO* 1 UNITS UNIT SUBCUT SCH (17:27)
[2017-03-10] MEDS: Allopurinol TAB* 100 MG PO SCH (17:28)
--- NOTE | 2017-03-10 17:49 | RAD ---
INDICATION: Left elbow pain and swelling COMPARISON: None TECHNIQUE: AP, lateral, and oblique views were obtained. A true lateral view and 90 degrees of flexion cannot be obtained due to the patient's clinical condition FINDINGS: There is no definitive acute bony change. There is moderate osteoarthritis. There is traction spurring from the olecranon. There is soft tissue edema about the medial epicondyle and medial upper arm. IMPRESSION: NO ACUTE BONY FINDINGS. MODERATE OSTEOARTHRITIS. DIFFUSE SOFT TISSUE SWELLING.
--- NOTE | 2017-03-10 17:50 | RAD ---
INDICATION: Left wrist injury COMPARISON: None TECHNIQUE: AP, lateral, and oblique views were obtained. FINDINGS: There is osteopenia. There is minor osteoarthritis of first CMC articulation. There is moderate radiocarpal joint space osteoarthritis There is no acute bony change. The carpals articulate normally. There are vascular calcifications. IMPRESSION: OSTEOARTHRITIS. NO ACUTE BONY CHANGE.
--- NOTE | 2017-03-10 20:18 | HP ---
CC: Dr. Francis * [facility] MEDICINE HISTORY AND PHYSICAL: DATE OF ADMISSION: 03/10/17 PRIMARY CARE PHYSICIAN: Dr. Francis. ATTENDING PHYSICIAN: Dr. Clem Camilo * (dictation provided by Rosa Hernandez NP). CHIEF COMPLAINT: Left wrist swelling and pain. HISTORY OF PRESENT ILLNESS: Mr. Phoenix is an 86-year-old male with a past medical history of insulin-dependent diabetes, hypertension and gout, who presented to the hospital today with concerns for swelling and pain at his left wrist. The patient states this began on Saturday. He has had decreased range of motion to the left wrist. The pain and swelling continued and therefore, he presented to the emergency room for evaluation. On examination, the patient actually has redness, pain and swelling at the wrist on the left as well as the elbow. He has decreased range of motion in the hand and at the wrist and elbow joints. He denies any recent fever. He has had no chest pain. He has had no shortness of breath. He has had no nausea, vomiting, diarrhea, or abdominal pain. He has a history of gout for which he takes allopurinol routinely. He states that he has had gout per his recollection only to his right elbow. In the emergency room, the patient had white blood cell count which was normal, his ESR was 77. His CRP was 80.80. He had no fever. His vital signs are stable. He had a venous Doppler of the upper extremity which showed no DVT. PAST MEDICAL HISTORY: 1. Noninsulin-dependent diabetes. 2. Hyperlipidemia. 3. Hypertension. 4. Gout. 5. History of DVT. 6. Cellulitis. 7. Right total knee arthroplasty. The patient denies any trauma to the left arm. MEDICATIONS: 1. Insulin 37 units subcutaneously at bedtime. 2. Metformin 850 mg p.o. b.i.d. 3. Pravastatin 40 mg p.o. at bedtime. 4. Tylenol 650 mg p.o. q.6 hours p.r.n. 5. Allopurinol 200 mg p.o. q.a.m. and 200 mg p.o. q.p.m. 6. Aspirin 81 mg p.o. daily. 7. Lisinopril 10 mg p.o. daily. 8. Tramadol 50 mg p.o. q.8 hours p.r.n. ALLERGIES: To HYDROCODONE and OXYCODONE. FAMILY HISTORY: The patient reports his mother related to a CVA. His father lived at age of 93. SOCIAL HISTORY: No report of alcohol, tobacco, or drug use. He lives with his Jaja, who is the healthcare proxy. REVIEW OF SYSTEMS: A 14-point review of systems was completed with Mr. Phoenix and all those not mentioned above were negative. PHYSICAL EXAMINATION GENERAL: Mr. Phoenix is lying in the bed. He is in no acute distress. VITAL SIGNS: Blood pressure 112/69, heart rate 89, respiratory rate 16, temperature 98.2, O2 saturation 93% on room air. LUNGS: Clear to auscultation bilaterally. No accessory muscle use and good aeration. HEART: S1, S2. No murmur, rub or gallop and regular. ABDOMEN: Soft, nontender with bowel sounds positive x4. EXTREMITIES: No cyanosis. Positive for edema on the left upper extremity ranging from the hand up to just past the elbow. There is erythema noted to both the wrist and the elbow. The patient has decreased range of motion at the wrist, elbow and decreased range of motion and inability to make a fist in left hand. No other swelling is noted. The skin is intact throughout. NEURO: He is alert. He is oriented x3. He moves all extremities equally. There is no facial asymmetry or focal weakness. Extraocular movements are intact. DIAGNOSTIC STUDIES/LAB DATA: WBC 10.7, hemoglobin 13.6, hematocrit 41, platelet count 233. ESR 77. INR 1.01. Sodium 131, potassium 4.5, chloride 99 , serum carbonate 27, BUN 19, creatinine 0.89, glucose 158. CRP 80.80. Urine shows no evidence of infection. Venous Doppler study of the upper extremities read as follows: "No evidence of deep vein thrombosis." ASSESSMENT AND PLAN: Mr. Phoenix is an 86-year-old male with a past medical history of insulin-dependent diabetes, gout, hypertension and hyperlipidemia, who presents to the hospital today with concern for left upper extremity swelling and redness with decreased range of motion in the elbow, wrist and hand. Our plans are for inpatient admission as I expect his length of stay to be greater than 2 days for the followin. Septic arthritis versus cellulitis versus gout: The patient has swelling at 2 joints, which makes gout less likely and the fact that he has redness and swelling specifically over both the wrist and the elbow joint riase concern for septic arthritis. I have consulted Dr. Peres and he will be seeing the patient today. Out of concern for septic arthritis, I will be treating with vancomycin and ceftriaxone at 2 g. It is possible that the patient has a cellulitis and this certainly be covered with this regimen; plan to tailor the regimen based on the clinical course. The patient shows no evidence of sepsis. Lactic acid is normal. Vital signs are stable. The patient will have tramadol for pain. He is allergic to HYDROCODONE and OXYCODONE per the record. 2. Type 2 diabetes. Plan to continue slightly lower dose of home Lantus, as I expect him to have decreased oral intake in general during the hospitalization. He will have lispro sliding scale with meals, plan to hold the metformin. He will have consistent carbohydrate diet. 3. History of gout. Continue the allopurinol and will be working him up for that as a factor and to keep presentation as per above. 4. Hypertension. Continue lisinopril. 5. Code status is full code. TIME SPENT: Approximately 60 minutes were spent on the admission of this patient, more than half of the time was spent with the patient at the bedside reviewing the events leading up to the hospitalization, performing the physical examination, and reviewing my plan of care. ROSA HERNANDEZ NP [id number]/CPS #: [id number] RES[facility]MA
[2017-03-10] MEDS: Insulin GLARGINE(*) 1 UNITS UNIT SUBCUT SCH (21:58)
[2017-03-10] MEDS: ATROPINE 1% LEFT EYE SCH (21:58)
[2017-03-10] MEDS: TRIMETHOPRIM LEFT EYE SCH (23:32)
[2017-03-10] MEDS: POLYMYXIN B LEFT EYE SCH (23:32)
[2017-03-10] MEDS: PTO:prednisoLONE 1% OPHTH.SUSP* 5 ML OPHTH.SUSP LEFT EYE SCH (23:33)
[2017-03-11] MEDS ORDERED: Vancomycin(*) 1,250 MG IV IVPB ONE ×2 (02:00)
[2017-03-11] MEDS: PTO:prednisoLONE 1% OPHTH.SUSP* 5 ML OPHTH.SUSP LEFT EYE SCH ×4 (05:34→22:50)
[2017-03-11] MEDS: POLYMYXIN B LEFT EYE SCH ×4 (05:34→22:51)
[2017-03-11] MEDS: TRIMETHOPRIM LEFT EYE SCH ×4 (05:34→22:51)
[2017-03-11] MEDS: Heparin VIAL(*) 5000 UNITS/ML VIAL (FIVE THOUSAND) SUBCUT SCH ×3 (05:35→20:25)
[2017-03-11 06:48] LABS: ABS Basophils 0 10^3/ul (0-0.2); ABS Eosinophils 0.1 10^3/ul (0-0.6); ABS Lymphocytes 2.7 10^3/ul (1.0-4.8); ABS Monocytes 1.1 10^3/ul (0-0.8); ABS Neutrophils 6.4 10^3/ul (1.5-7.7); ABS Nucleated RBC 0 10^3/ul; Eosinophil % 0.5 % (0-6); Hematocrit 40 % (42-52); Hemoglobin 13.8 g/dl (14.0-18.0); Lymphocyte % 26.5 % (25-47); Mean Corpuscular HGB Conc 34 g/dl (31-36); Mean Corpuscular Hemoglobin 31 pg (27-31); Mean Corpuscular Volume 90 fL (80-94); Mean Platelet Volume 7 um3 (7.4-10.4); Nucleated Red Blood Cells % 0.1; Platelet Count 260 10^3/ul (150-450); Red Blood Count 4.46 10^6/ul (4.0-5.4); Red Cell Distribution Width 15 % (10.5-15); White Blood Count 10.3 10^3/ul (3.5-10.8)
[2017-03-11] MEDS: Aspirin Low Dose CHEW TAB* 81 MG PO SCH (09:07)
[2017-03-11] MEDS: Allopurinol TAB* 100 MG PO SCH ×2 (09:07→17:59)
[2017-03-11] MEDS: ATROPINE 1% LEFT EYE SCH ×2 (09:07→20:21)
[2017-03-11] MEDS: Lisinopril TAB* 10 MG PO SCH (09:07)
[2017-03-11] MEDS: Insulin LISPRO* 1 UNITS UNIT SUBCUT SCH ×3 (09:09→17:56)
--- NOTE | 2017-03-11 09:43 | ED ---
Beth Kuhn Edward, scribed for Raji Medellin MD on 03/10/17 at 0932 . Upper Extremity Pain - HPI Summary HPI Summary: 86 y/o male presents to the ED c/o severe LUE pain starting two days ago. It started mild and became more severe. Pt had clam chowder two days ago and states certain seafoods cause his gout to flare up. Associated sx: swelling and redness. The swelling, pain and redness goes from the L elbow down to the L wrist. Pt had eye surgery three days ago. Denies fevers/chills. Denies trauma. PMHx gout. - History of Current Complaint Chief Complaint: EDExtremityUpper Stated Complaint: SWOLLEN LT HAND Time Seen by Provider: 03/10/17 09:25 Hx Obtained From: Patient Mechanism Of Injury: Unknown Onset/Duration: Started Days Ago Timing: Constant - Allergies/Home Medications Allergies/Adverse Reactions: Allergies Allergy/AdvReac Type Severity Reaction Status Date / Time Hydrocodone AdvReac Altered Verified 03/10/17 14:15 Mental Status Oxycodone AdvReac Altered Verified 03/10/17 14:15 Mental Status Home Medications: Home Medications Atropine 1% OPHTH.DANUTA* 1 drop LEFT EYE BID 03/10/17 [History Confirmed 03/10/17] Polymyx/Trimethoprim OPTH* 1 drop LEFT EYE Q6HR 03/10/17 [History Confirmed ] Prednisolone Acetate (Ophth) 03/10/17 [History] prednisoLONE 1% OPHTH.SUSP* 1 drop LEFT EYE Q6HR 03/10/17 [History Confirmed ] PMH/Surg Hx/FS Hx/Imm Hx Previously Healthy: No Endocrine/Hematology History: Reports: Hx Anticoagulant Therapy - ASA, Hx Diabetes - lantus, metformin Cardiovascular History: Reports: Hx Hypercholesterolemia, Hx Hypertension Denies: Hx Congestive Heart Failure, Other Cardiovascular Problems/Disorders Respiratory History: Reports: Hx Pneumonia, Other Respiratory Problems/ Disorders - h/o pneumonia Denies: Hx Asthma, Hx Chronic Obstructive Pulmonary Disease (COPD) GI History: Denies: Other GI Disorders History: Denies: Hx Renal Disease Musculoskeletal History: Reports: Hx Arthritis - RIGHT KNEE, SHOULDERS, Hx Gout Sensory History: Reports: Hx Cataracts - both eyes, awaiting surgery, Hx Contacts or Glasses Denies: Hx Eye Injury, Hx Eye Prosthesis, Hx Glaucoma, Hx Legally Blind, Hx Macular Degeneration, Hx Vision Problem, Hx Deafness, Hx Hearing Aid, Hx Hearing Problem, Other Sensory Impairments Opthamlomology History: Reports: Hx Cataracts - both eyes, awaiting surgery, Hx Contacts or Glasses Denies: Hx Eye Injury, Hx Eye Prosthesis, Hx Glaucoma, Hx Legally Blind, Hx Macular Degeneration, Hx Vision Problem, Other Sensory Impairments Neurological History: Denies: Hx Dementia - Surgical History Surgery Procedure, Year, and Place: ARTHROSCOPIC SURGERIES ON KNEES 10 YRS AGO Hx Anesthesia Reactions: No - Immunization History Date of Tetanus Vaccine: PT STATES UNSURE Date of Influenza Vaccine: NONE Infectious Disease History: No Infectious Disease History: Denies: Hx Clostridium Difficile, Hx Hepatitis, Hx Human Immunodeficiency Virus (HIV), Hx of Known/Suspected MRSA, Hx Shingles, Hx Tuberculosis, Hx Known/ Suspected VRE, Hx Known/Suspected VRSA, History Other Infectious Disease, Traveled Outside the [place] in Last 30 Days - Family History Known Family History: Positive: Diabetes - Mother Negative: Cardiac Disease - Social History Alcohol Use: None Hx Substance Use: No Substance Use Type: Reports: None Hx Tobacco Use: Yes Smoking Status (MU): Former Smoker Review of Systems Constitutional: Negative Eyes: Negative ENT: Negative Cardiovascular: Negative Respiratory: Negative Gastrointestinal: Negative Genitourinary: Negative Positive: Arthralgia - LUE pain, Decreased ROM - LUE, Edema - LUE Positive: Other - erythema @ LUE Neurological: Negative Psychological: Normal All Other Systems Reviewed And Are Negative: Yes Physical Exam - Summary Physical Exam Summary: VITAL SIGNS: Reviewed. GENERAL: Patient is a well-developed and nourished male who is lying comfortable in the stretcher. Patient is not in any acute respiratory distress. Pt is unkempt. HEAD AND FACE: No signs of trauma. No ecchymosis, hematomas or skull depressions. No sinus tenderness. EYES: PERRLA, EOMI x 2, No injected conjunctiva, no nystagmus. EARS: Hearing grossly intact. Ear canals and tympanic membranes are within normal limits. MOUTH: Oropharynx within normal limits. NECK: Supple, trachea is midline, no adenopathy, no JVD, no carotid bruit, no c- spine tenderness, neck with full ROM. CHEST: Symmetric, no tenderness at palpation LUNGS: Clear to auscultation bilaterally. No wheezing or crackles. CVS: Regular rate and rhythm, S1 and S2 present, no murmurs or gallops appreciated. ABDOMEN: Soft, non-tender. No signs of distention. No rebound no guarding, and no masses palpated. Bowel sounds are normal. EXTREMITIES: LUE swelling and redness from the digits to the elbow, with decreased ROM. Pain is 10/10. NEURO: Alert and oriented x 3. No acute neurological deficits. Speech is normal and follows commands. SKIN: Dry and warm Triage Information Reviewed: Yes Vital Signs On Initial Exam: Initial Vitals Temp Pulse Resp BP Pulse Ox 98.5 F 103 20 132/71 96 03/10/17 09:20 03/10/17 09:20 03/10/17 09:20 03/10/17 09:20 03/10/17 09:20 Vital Signs Reviewed: Yes Diagnostics - Vital Signs Vital Signs Temp Pulse Resp BP Pulse Ox 03/10/17 09:20 98.5 F 103 20 132/71 96 - Laboratory Lab Results: Lab Results 03/10/17 03/10/17 03/10/17 Range/Units 10:04 10:04 10:04 WBC 10.7 (3.5-10.8) 10^3/ul RBC 4.42 (4.0-5.4) 10^6/ul Hgb 13.6 L (14.0-18.0) g/dl Hct 41 L (42-52) % MCV 92 (80-94) fL MCH 31 (27-31) pg MCHC 34 (31-36) g/dl RDW 15 (10.5-15) % Plt Count 233 (150-450) 10^3/ul MPV 7 L (7.4-10.4) um3 Neut % (Auto) 69.6 (38-83) % Lymph % (Auto) 18.6 L (25-47) % Mcculloch % (Auto) 10.3 H (1-9) % Eos % (Auto) 0.7 (0-6) % Baso % (Auto) 0.8 (0-2) % Absolute Neuts (auto) 7.5 (1.5-7.7) 10^3/ul Absolute Lymphs (auto) 2.0 (1.0-4.8) 10^3/ul Absolute Monos (auto) 1.1 H (0-0.8) 10^3/ul Absolute Eos (auto) 0.1 (0-0.6) 10^3/ul Absolute Basos (auto) 0.1 (0-0.2) 10^3/ul Absolute Nucleated RBC 0 10^3/ul Nucleated RBC % 0 ESR 77 H (0-40) mm/Hr INR (Anticoag Therapy) 1.01 (0.77-1.02) Sodium 131 L (133-145) mmol/L Potassium 4.5 (3.5-5.0) mmol/L Chloride 99 L (101-111) mmol/L Carbon Dioxide 27 (22-32) mmol/L Anion Gap 5 (2-11) mmol/L BUN 19 (6-24) mg/dL Creatinine 0.89 (0.67-1.17) mg/dL Est GFR ( Amer) 104.7 (>60) Est GFR (Non-Af Amer) 81.4 (>60) BUN/Creatinine Ratio 21.3 H (8-20) Glucose 158 H (70-100) mg/dL Lactic Acid (0.5-2.0) mmol/L Uric Acid 3.8 L (4.4-7.6) mg/dL Calcium 9.3 (8.6-10.3) mg/dL Total Bilirubin 0.60 (0.2-1.0) mg/dL AST 11 L (13-39) U/L ALT 6 L (7-52) U/L Alkaline Phosphatase 60 (34-104) U/L C-Reactive Protein 80.80 H (< 5.00) mg/L Total Protein 7.5 (6.4-8.9) g/dL Albumin 3.7 (3.2-5.2) g/dL Globulin 3.8 (2-4) g/dL Albumin/Globulin Ratio 1.0 (1-3) Urine Color Urine Appearance Urine pH (5-9) Ur Specific Gardiner (1.010-1.030) Urine Protein (Negative) Urine Ketones (Negative) Urine Blood (Negative) Urine Nitrate (Negative) Urine Bilirubin (Negative) Urine Urobilinogen (Negative) Ur Leukocyte Esterase (Negative) Urine WBC (Auto) (Absent) Urine RBC (Auto) (Absent) Ur Squamous Epith Cells (Absent) Urine Bacteria (Absent) Urine Glucose (Negative) 03/10/17 03/10/17 Range/Units 10:04 12:16 WBC (3.5-10.8) 10^3/ul RBC (4.0-5.4) 10^6/ul Hgb (14.0-18.0) g/dl Hct (42-52) % MCV (80-94) fL MCH (27-31) pg MCHC (31-36) g/dl RDW (10.5-15) % Plt Count (150-450) 10^3/ul MPV (7.4-10.4) um3 Neut % (Auto) (38-83) % Lymph % (Auto) (25-47) % Mcculloch % (Auto) (1-9) % Eos % (Auto) (0-6) % Baso % (Auto) (0-2) % Absolute Neuts (auto) (1.5-7.7) 10^3/ul Absolute Lymphs (auto) (1.0-4.8) 10^3/ul Absolute Monos (auto) (0-0.8) 10^3/ul Absolute Eos (auto) (0-0.6) 10^3/ul Absolute Basos (auto) (0-0.2) 10^3/ul Absolute Nucleated RBC 10^3/ul Nucleated RBC % ESR (0-40) mm/Hr INR (Anticoag Therapy) (0.77-1.02) Sodium (133-145) mmol/L Potassium (3.5-5.0) mmol/L Chloride (101-111) mmol/L Carbon Dioxide (22-32) mmol/L Anion Gap (2-11) mmol/L BUN (6-24) mg/dL Creatinine (0.67-1.17) mg/dL Est GFR ( Amer) (>60) Est GFR (Non-Af Amer) (>60) BUN/Creatinine Ratio (8-20) Glucose (70-100) mg/dL Lactic Acid 0.6 (0.5-2.0) mmol/L Uric Acid (4.4-7.6) mg/dL Calcium (8.6-10.3) mg/dL Total Bilirubin (0.2-1.0) mg/dL AST (13-39) U/L ALT (7-52) U/L Alkaline Phosphatase (34-104) U/L C-Reactive Protein (< 5.00) mg/L Total Protein (6.4-8.9) g/dL Albumin (3.2-5.2) g/dL Globulin (2-4) g/dL Albumin/Globulin Ratio (1-3) Urine Color Yellow Urine Appearance Clear Urine pH 5.0 (5-9) Ur Specific Gardiner 1.019 (1.010-1.030) Urine Protein Negative (Negative) Urine Ketones Negative (Negative) Urine Blood 1+ H (Negative) Urine Nitrate Negative (Negative) Urine Bilirubin Negative (Negative) Urine Urobilinogen Negative (Negative) Ur Leukocyte Esterase Negative (Negative) Urine WBC (Auto) Absent (Absent) Urine RBC (Auto) Trace(0-2/hpf) (Absent) Ur Squamous Epith Cells Present H (Absent) Urine Bacteria Absent (Absent) Urine Glucose 1+(50 mg/dl) H (Negative) Result Diagrams: 03/11/17 06:21 03/10/17 10:04 Lab Statement: Any lab studies that have been ordered have been reviewed, and results considered in the medical decision making process. - Ultrasound No standard instances Ultrasound Interpretation: No Acute Changes - LE POLY DOPPLER - NO EVIDENCE OF DEEP VEINOUS THROMBOSIS Ultrasound Interpretation Completed By: Radiologist - ED PHYSICIAN REVIEWS AND AGREES Course/Dx - Course Assessment/Plan: 86 y/o male presents to the ED c/o severe LUE pain starting two days ago. It started mild and became more severe. Pt had clam chowder two days ago and states certain seafoods cause his gout to flare up. Associated sx: swelling. The swelling and pain goes from the L elbow down to the L wrist. Pt had eye surgery three days ago. Denies fevers/chills. Denies trauma. PMHx gout. POLY DOPPLER LE - LE POLY DOPPLER - NO EVIDENCE OF DEEP VEINOUS THROMBOSIS. Test results are without significant abnormalities except slight anemia, ESR 77. US negative for DVT. In the ED course the pt was given iv fluids, morphine for pain and rocephin for what I think is LUE cellulitis. I discussed with Rosa Hernandez who is working with Dr. Camilo who accepted the pt for admission. - Diagnoses Differential Diagnosis/HQI/PQRI: Positive: Bursitis, Fracture (Open), Strain, Sprain Provider Diagnoses: LUE cellulitis vs. gout - Physician Notifications Discussed Care of Patient With: Clem Camilo Time Discussed With Above Provider: 11:41 Instructed by Provider To: Admit As Inpatient Discharge - Discharge Plan Condition: Stable Disposition: ADMITTED TO [facility] documentation as recorded by the Beth mccabe Edward accurately reflects the service I personally performed and the decisions made by , Raji Medellin MD.
[2017-03-11] MEDS: cefTRIAXone(*) 2 GM in NS 0.9% 100 ML* 100 ML IVPB SCH (10:39)
[2017-03-11] MEDS: Vancomycin(*) 1,250 MG IV IVPB SCH ×2 (14:23)
--- NOTE | 2017-03-11 18:01 | PN ---
Subjective Date of Service: 03/11/17 Interval History: Patient states that his arm is significantly improved on antibiotics but still has significant pain with movement. Patient denies F/C, N/V, abdominal pain, Diarrhea, patient states he feels a little constipated. Patient denies trauma to his arm. Patient denies any wound on the areas where he has swelling. Patient recently had an eye surgery and is on atropine drops which significantly hinder his eyesight. Family History: Unchanged from Admission Social History: Unchanged from Admission Past Medical History: Unchanged from Admission Objective Active Medications: Acetaminophen (Tylenol Tab*) 650 mg PO Q6H PRN PRN Reason: PAIN SCALE 6-10 Allopurinol (Zyloprim Tab*) 200 mg PO QAM [facility] Last Admin: 03/11/17 09:07 Dose: 200 mg Allopurinol (Zyloprim Tab*) 200 mg PO QPM [facility] Last Admin: 03/10/17 17:28 Dose: 200 mg Aspirin (Aspirin Low Dose Tab*) 81 mg PO DAILY [facility] Last Admin: 03/11/17 09:07 Dose: 81 mg Atropine Sulfate (Atropine 1% Ophth.Chapis*) 1 drop LEFT EYE BID [facility] Last Admin: 03/11/17 09:07 Dose: 1 drop Dextrose (D50w Syringe 50 Ml*) 12.5 gm IV PUSH .FOR FS < 60 - SS PRN PRN Reason: FS < 60 Heparin Sodium (Porcine) (Heparin Vial(*)) 5,000 units SUBCUT Q8HR [facility] Last Admin: 03/11/17 14:23 Dose: 5,000 units Ceftriaxone Sodium 2 gm/ (Sodium Chloride) 100 mls @ 200 mls/hr IVPB Q24H [facility] Last Admin: 03/11/17 10:39 Dose: 200 mls/hr Vancomycin HCl 1,250 mg/ (Sodium Chloride) 250 mls @ 166.667 mls/hr IVPB 0200, 1400 [facility] Last Admin: 03/11/17 14:23 Dose: 166.667 mls/hr Insulin Glargine (Lantus(*)) 30 units SUBCUT BEDTIME [facility] Last Admin: 03/10/17 21:58 Dose: 30 units Insulin Human Lispro (Humalog*) 0 units SUBCUT AC [facility] PRN Reason: Protocol Last Admin: 03/11/17 12:39 Dose: 3 units Lisinopril (Prinivil Tab*) 10 mg PO DAILY [facility] Last Admin: 03/11/17 09:07 Dose: 10 mg Pharmacy Profile Note (Vancomycin Trough Check) 1 note FOLLOW UP ONCE ONE Stop: 03/12/17 13:31 Polymyxin/Trimethoprim Sulfate (Polytrim Ophth*) 1 drop LEFT EYE Q6HR [facility] Last Admin: 03/11/17 12:43 Dose: 1 drop Prednisolone Acetate (Pred Forte 1%*) 1 drop LEFT EYE Q6HR [facility] Last Admin: 03/11/17 12:43 Dose: 1 drop Tramadol HCl (Ultram*) 50 mg PO Q8H PRN PRN Reason: PAIN Last Admin: 03/10/17 17:32 Dose: 50 mg Vital Signs - 8 hr 03/11/17 12:12 Temperature 98.2 F Pulse Rate 100 Respiratory 18 Rate Blood Pressure 145/69 (mmHg) O2 Sat by Pulse 94 Oximetry Oxygen Devices in Use Now: None Appearance: Patient is an 86yo male who appears stated age and is sitting in the bed in [facility]. Eyes: No Scleral Icterus, - - Left eye with significant mydriasis. Ears/Nose/Mouth/Throat: NL Teeth, Lips, Gums, Clear Oropharnyx, Mucous Membranes Moist Neck: NL Appearance and Movements; NL JVP, Trachea Midline Respiratory: Symmetrical Chest Expansion and Respiratory Effort, Clear to Auscultation, - - Diminished Cardiovascular: NL Sounds; No Murmurs; No JVD, RRR, No Edema Abdominal: NL Sounds; No Tenderness; No Distention, No Hepatosplenomegaly Lymphatic: No Cervical Adenopathy Extremities: No Clubbing, Cyanosis Skin: No Nodules or Sclerosis, - - Redness and swelling on the left wrist and elbow. Neurological: Alert and Oriented x 3, NL Sensation, NL Muscle Strength and Tone , - - CN II-XII intact except for left pupil Result Diagrams: 03/11/17 06:21 03/10/17 10:04 Additional Lab and Data: Lab Results Assess/Plan/Problems-Billing Assessment: Patient is a 86yo male with a PMH significant for NIDDM, HLD, HTN, Gout, DVT and cellulitis who presents with left arm swelling and tenderness with movement. Improving on Vancomycin and Ceftriaxone. - Patient Problems (1) Cellulitis Current Visit: Yes Status: Acute Code(s): L03.90 - CELLULITIS, UNSPECIFIED SNOMED Code(s): 582410437 Comment: Appreciate Orthopedic input. Likely cellulitis overlying wrist and elbow. Pain with movement but improving significantly. No systemic symptoms. Non-purulent. Likely streptococcal. X rays negative. No need for arthrocentesis at this point. (2) Retinal tear Current Visit: Yes Status: Acute Code(s): H33.319 - HORSESHOE TEAR OF RETINA WITHOUT DETACHMENT, UNSPECIFIED EYE SNOMED Code(s): 53744062 Comment: History of, recently repaired. Continue eye drops. (3) Gout Current Visit: Yes Status: Acute Code(s): M10.9 - GOUT, UNSPECIFIED SNOMED Code(s): 34494881 Comment: Uric acid normal. Swelling improving on antibiotics. Continue allopurinol. (4) Hyperlipidemia Current Visit: No Status: Acute Code(s): E78.5 - HYPERLIPIDEMIA, UNSPECIFIED SNOMED Code(s): 30270407 Comment: Continue statin (5) Hypertension Current Visit: No Status: Acute Code(s): I10 - ESSENTIAL (PRIMARY) HYPERTENSION SNOMED Code(s): 00018366 Comment: Normotensive. Continue antihypertensives. (6) DVT prophylaxis Current Visit: No Status: Acute Code(s): EBQ4439 - SNOMED Code(s): 740444250 Comment: Heparin sub q Status and Disposition: Admitted inpatient. Hopeful discharge tomorrow.
[2017-03-11] MEDS: Insulin GLARGINE(*) 1 UNITS UNIT SUBCUT SCH (20:22)
[2017-03-12] MEDS: Vancomycin(*) 1,250 MG IV IVPB SCH ×2 (02:05)
[2017-03-12] MEDS: PTO:prednisoLONE 1% OPHTH.SUSP* 5 ML OPHTH.SUSP LEFT EYE SCH ×2 (06:22→12:46)
[2017-03-12] MEDS: POLYMYXIN B LEFT EYE SCH ×2 (06:22→12:47)
[2017-03-12] MEDS: TRIMETHOPRIM LEFT EYE SCH ×2 (06:22→12:47)
[2017-03-12] MEDS: Heparin VIAL(*) 5000 UNITS/ML VIAL (FIVE THOUSAND) SUBCUT SCH ×2 (06:22→17:36)
[2017-03-12 07:21] LABS: ABS Basophils 0.1 10^3/ul (0-0.2); ABS Eosinophils 0.1 10^3/ul (0-0.6); ABS Lymphocytes 2.5 10^3/ul (1.0-4.8); ABS Monocytes 0.9 10^3/ul (0-0.8); ABS Neutrophils 5.2 10^3/ul (1.5-7.7); ABS Nucleated RBC 0 10^3/ul; Eosinophil % 1.5 % (0-6); Hematocrit 40 % (42-52); Hemoglobin 13.6 g/dl (14.0-18.0); Lymphocyte % 28.9 % (25-47); Mean Corpuscular HGB Conc 34 g/dl (31-36); Mean Corpuscular Hemoglobin 31 pg (27-31); Mean Corpuscular Volume 90 fL (80-94); Mean Platelet Volume 7 um3 (7.4-10.4); Nucleated Red Blood Cells % 0; Platelet Count 262 10^3/ul (150-450); Red Blood Count 4.44 10^6/ul (4.0-5.4); Red Cell Distribution Width 14 % (10.5-15); White Blood Count 8.8 10^3/ul (3.5-10.8)
[2017-03-12 07:32] LABS: EGFR Non-African American 74.6 (>60)
[2017-03-12] MEDS: Insulin LISPRO* 1 UNITS UNIT SUBCUT SCH ×2 (08:00→12:44)
--- NOTE | 2017-03-12 08:20 | PN ---
Subjective Date of Service: 03/12/17 Interval History: Patient seen and examined at bedside. He is OOB to chair. He denies fever/chills , CP, SOB, n/v/d. He does endorses some constipation. Overall, he feels his left arm has improved, though there is still pain and discomfort with movement. He reports decreased swelling in the hand, and he has better mobility of the fingers. No other acute complaints at this time. Family History: Unchanged from Admission Social History: Unchanged from Admission Past Medical History: Unchanged from Admission Objective Active Medications: Acetaminophen (Tylenol Tab*) 650 mg PO Q6H PRN PRN Reason: PAIN SCALE 6-10 Last Admin: 03/11/17 20:23 Dose: 650 mg Allopurinol (Zyloprim Tab*) 200 mg PO QAM [facility] Last Admin: 03/11/17 09:07 Dose: 200 mg Allopurinol (Zyloprim Tab*) 200 mg PO QPM [facility] Last Admin: 03/11/17 17:59 Dose: 200 mg Aspirin (Aspirin Low Dose Tab*) 81 mg PO DAILY [facility] Last Admin: 03/11/17 09:07 Dose: 81 mg Atropine Sulfate (Atropine 1% Ophth.Chapis*) 1 drop LEFT EYE BID [facility] Last Admin: 03/11/17 20:21 Dose: 1 drop Dextrose (D50w Syringe 50 Ml*) 12.5 gm IV PUSH .FOR FS < 60 - SS PRN PRN Reason: FS < 60 Heparin Sodium (Porcine) (Heparin Vial(*)) 5,000 units SUBCUT Q8HR [facility] Last Admin: 03/12/17 06:22 Dose: 5,000 units Ceftriaxone Sodium 2 gm/ (Sodium Chloride) 100 mls @ 200 mls/hr IVPB Q24H [facility] Last Admin: 03/11/17 10:39 Dose: 200 mls/hr Vancomycin HCl 1,250 mg/ (Sodium Chloride) 250 mls @ 166.667 mls/hr IVPB 0200, 1400 [facility] Last Admin: 03/12/17 02:05 Dose: 166.667 mls/hr Insulin Glargine (Lantus(*)) 30 units SUBCUT BEDTIME [facility] Last Admin: 03/11/17 20:22 Dose: 30 units Insulin Human Lispro (Humalog*) 0 units SUBCUT AC [facility] PRN Reason: Protocol Last Admin: 03/12/17 08:00 Dose: Not Given Lisinopril (Prinivil Tab*) 10 mg PO DAILY [facility] Last Admin: 03/11/17 09:07 Dose: 10 mg Pharmacy Profile Note (Vancomycin Trough Check) 1 note FOLLOW UP ONCE ONE Stop: 03/12/17 13:31 Polymyxin/Trimethoprim Sulfate (Polytrim Ophth*) 1 drop LEFT EYE Q6HR [facility] Last Admin: 03/12/17 06:22 Dose: 1 drop Prednisolone Acetate (Pred Forte 1%*) 1 drop LEFT EYE Q6HR [facility] Last Admin: 03/12/17 06:22 Dose: 1 drop Tramadol HCl (Ultram*) 50 mg PO Q8H PRN PRN Reason: PAIN Last Admin: 03/10/17 17:32 Dose: 50 mg Vital Signs - 8 hr 03/12/17 02:20 Temperature 97.9 F Pulse Rate 84 Respiratory 20 Rate Blood Pressure 109/67 (mmHg) O2 Sat by Pulse 95 Oximetry Oxygen Devices in Use Now: None Appearance: Older male, OOB to chair, in NAD Eyes: No Scleral Icterus, - - left eye mydriasis Ears/Nose/Mouth/Throat: NL Teeth, Lips, Gums, Clear Oropharnyx, Mucous Membranes Moist Neck: NL Appearance and Movements; NL JVP Respiratory: Symmetrical Chest Expansion and Respiratory Effort, Clear to Auscultation Cardiovascular: NL Sounds; No Murmurs; No JVD, RRR Abdominal: NL Sounds; No Tenderness; No Distention Extremities: No Edema, - - edema to dorsal surface of left hand, wrist, elbow; mild tenderness with palpation, some erythema Skin: No Rash or Ulcers Neurological: Alert and Oriented x 3, NL Muscle Strength and Tone Lines/Tubes/Other Access: Clean, Dry and Intact Peripheral IV Nutrition: Taking PO's Result Diagrams: 03/12/17 07:04 03/12/17 07:04 Additional Lab and Data: Lab Results Assess/Plan/Problems-Billing Assessment: Patient is a 86yo male with a PMH significant for NIDDM, HLD, HTN, Gout, DVT and cellulitis who presents with left arm swelling and tenderness with movement. Improving on Vancomycin and Ceftriaxone. - Patient Problems (1) Cellulitis Code(s): L03.90 - CELLULITIS, UNSPECIFIED Comment: Appreciate Orthopedic input. Likely cellulitis overlying wrist and elbow. Pain with movement but improving significantly, no systemic symptoms, non- purulent. Likely streptococcal. X rays negative. No need for arthrocentesis at this point. Plan to switch vanco and ceftriaxone to clindamycin with outpatient f/u. (2) Retinal tear Code(s): H33.319 - HORSESHOE TEAR OF RETINA WITHOUT DETACHMENT, UNSPECIFIED EYE Comment: History of retinal tear, recently repaired. Continue eye drops. (3) Gout Code(s): M10.9 - GOUT, UNSPECIFIED Comment: Uric acid normal. Swelling improving on antibiotics. Continue allopurinol. (4) Hyperlipidemia Code(s): E78.5 - HYPERLIPIDEMIA, UNSPECIFIED Comment: Continue statin (5) Hypertension Code(s): I10 - ESSENTIAL (PRIMARY) HYPERTENSION Comment: Normotensive. Continue antihypertensives. (6) DVT prophylaxis Comment: Heparin sub q Status and Disposition: Admitted inpatient. Plan for d/c to home.
[2017-03-12] MEDS ORDERED: Polyethylene Glycol 3350* 17 GM PACKET PO SCH (09:00)
[2017-03-12] MEDS: Aspirin Low Dose CHEW TAB* 81 MG PO SCH (09:32)
[2017-03-12] MEDS: Lisinopril TAB* 10 MG PO SCH (09:33)
[2017-03-12] MEDS: Allopurinol TAB* 100 MG PO SCH (09:33)
[2017-03-12] MEDS: ATROPINE 1% LEFT EYE SCH (09:35)
[2017-03-12] MEDS: cefTRIAXone(*) 2 GM in NS 0.9% 100 ML* 100 ML IVPB SCH (09:59)
[2017-03-12 11:43] VITALS: BP 141/77
[2017-03-12] MEDS ORDERED: Clindamycin CAP* 150 MG PO SCH (13:00)
[2017-03-12] MEDS ORDERED: Vancomycin Trough Check NOTE FOLLOW UP ONE (13:30)
--- NOTE | 2017-03-14 15:44 | DS ---
CC: Dr. Ward Flores MEDICINE DISCHARGE SUMMARY: DATE OF ADMISSION: 03/10/17 DATE OF DISCHARGE: 03/12/17 PROVIDER: Toshia Tijerina NP ATTENDING PHYSICIAN: Dr. Meli Almonte (as dictated by Toshia Tijerina NP). PRIMARY CARE PHYSICIAN: Dr. Ward Flores. PRIMARY DISCHARGE DIAGNOSIS: Cellulitis of the left upper extremity. SECONDARY DISCHARGE DIAGNOSES: 1. Recent retinal tear, status post repair. 2. Asy-tolcarx-ptyytngmu diabetes. 3. Hyperlipidemia. 4. Hypertension. 5. Gout. 6. 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 MEDICATIONS AT DISCHARGE: 1. Atropine 1% drop 1 drop to left eye b.i.d. 2. Prednisolone 1% ophthalmic suspension 1 drop to left eye q.6 hours. 3. Polytrim eyedrops 1 drop to left eye q.6 hours. 4. Allopurinol 200 mg q.a.m. and 200 mg q.p.m. 5. Tylenol 650 mg q.6 hours p.r.n. 6. Pravastatin 40 mg at bedtime. 7. Lisinopril 10 mg daily. 8. Aspirin 81 mg daily. 9. Tramadol 50 mg q.8 hours p.r.n. 10. Metformin 850 mg b.i.d. with meals. 11. Lantus 30 units at bedtime. This is a change from previous 37 units. 12. Clindamycin 300 mg four times a day x7 additional days. HOSPITAL COURSE OF STAY: For full details, please refer to the H and P provided by Rosa Hernandez NP, o n 03/10/17. In summary, this is an 86-year-old male who presented to the hospital with concerns of t he left wrist swelling and pain. It is also noted that he had swelling along the elbow and he was ad mitted with concerns for septic arthritis versus cellulitis versus gout. He was started on vancomyci n and ceftriaxone and seen by Orthopedics. Dr. Peres of [facility] consulted on the patien t and did not feel this likely represented cellulitis, it did not represent gout or septic arthritis. An arthrocentesis was not indicated at this time and the patient improved with antibiotic therapy. He did have a mild bump in his CRP from admission to discharge, but the patient clinically has impro sania. His swelling has improved and he has improved range of motion. He is afebrile. He is hemodyna mically stable. The patient was advised to follow up with labs in 3 days to ensure that his labs are appropriately improving. He was advised to continue monitoring his progress. If there is any worse robin joint pain, purulent drainage, or fever at home, he is to return immediately to the ER. The juan luis gates has verbalized understanding. He has been started on clindamycin here to complete his antibioti c therapy, was given his first dose here in the hospital. He is to follow up with his primary care irene abdi within 5 to 7 days. OUTPATIENT FOLLOWUP NEEDS: The patient has been given a script for labs for followup with results to be sent to his PCP. Again, he is to follow up closely with his PCP to ensure resolution of his cell ulitis. DIET: Consistent carbohydrate diet. ACTIVITY: As tolerated. CONDITION: Improved, stable. DISPOSITION: To home. TIME SPENT: Time spent on this discharge was approximately 40 minutes. Again, this is a very brief summary of the patient's hospital course of stay. For full details, everett adrian refer to the full medical record. If you have any further questions or need further assistance, irene whitfield feel free to contact me at . TOSHIA TIJERINA NP [id number]/[facility] #: [id number]
== END 2017-03-12 15:00 | disposition home or self-care (01) | DRG 603 ==
LOC: ED 09:17 → MED 12:49
PROVIDERS: ADMIT Internal Medicine; ATTEND Internal Medicine
DX: L03.114 Cellulitis of left upper limb (principal); E11.9 Type 2 diabetes mellitus without complications; B95.5 Unspecified streptococcus as the cause of diseases classified elsewhere; E78.5 Hyperlipidemia, unspecified; I10 Essential (primary) hypertension; M10.9 Gout, unspecified; Z79.4 Long term (current) use of insulin; Z79.84 Long term (current) use of oral hypoglycemic drugs; Z86.718 Personal history of other venous thrombosis and embolism; Z96.651 Presence of right artificial knee joint; Z79.1 Long term (current) use of non-steroidal anti-inflammatories (NSAID); Z79.82 Long term (current) use of aspirin; Z79.899 Other long term (current) drug therapy; Z88.5 Allergy status to narcotic agent; Z88.8 Allergy status to other drugs, medicaments and biological substances
CPT/HCPCS: 36415; 80048; 80053; 80202; 81003; 81015; 83605; 84550; 85025; 85610; 85652; 86140; 87040; A9270-GY; J0696; J1644; J2270; J2405; J3370

== ENCOUNTER 2017-08-04 10:05 | Emergency (ER) | payer MEDICARE, BC ==
--- NOTE | 2017-08-04 10:56 | RAD ---
INDICATION: Right knee pain COMPARISON: October 29, 2016 TECHNIQUE: AP, lateral, tunnel, and sunrise views were obtained. FINDINGS: There is right knee arthroplasty. The prosthesis appears normally seated. There is no joint effusion. IMPRESSION: THE RIGHT KNEE PROSTHESIS APPEARS NORMALLY SEATED.
--- NOTE | 2017-08-04 12:14 | ED ---
Lower Extremity - HPI Summary HPI Summary: Patient is an 87-year-old otherwise healthy male presenting to the ED with a complaint of right knee pain. History of TKR 3-[address] Lira. He states he feels "clicking" from time to time but denies any pain over the past few years. Pain began approximately 2 days ago after arising from a chair. The majority of the pain is just lateral to the right knee. Pain is a 7/10, constant and throbbing. He has been taking his tramadol with minimal relief. There is no swelling, ecchymosis, erythema or warmth to the area. Denies any fevers, sweats, chills. He is otherwise healthy and takes no medications. - History of Current Complaint Chief Complaint: EDExtremityLower Stated Complaint: RT LEG PAIN Time Seen by Provider: 08/04/17 10:11 Hx Obtained From: Patient Onset of Pain: Immediate Onset/Duration: Days Severity Initially: Moderate Severity Currently: Moderate Pain Intensity: 8 Pain Scale Used: 0-10 Numeric Timing: Constant Location: Is Discrete @ - right knee pain Character Of Pain: Aching Associated Signs And Symptoms: Positive: Knee Pain. Negative: Swelling, Redness , Bruising, Fever, Weakness Aggravating Factor(s): Standing, Ambulation Alleviating Factor(s): Rest Able to Bear Weight: Yes - Risk Factors Gout Risk Factors: Negative DVT Risk Factors: Negative Septic Arthritis Risk Factor: Negative - Allergies/Home Medications Allergies/Adverse Reactions: Allergies Allergy/AdvReac Type Severity Reaction Status Date / Time hydrocodone Allergy Altered Verified 08/04/17 10:35 Mental Status oxycodone Allergy Altered Verified 08/04/17 10:35 Mental Status PMH/Surg Hx/FS Hx/Imm Hx Previously Healthy: Yes Endocrine/Hematology History: Reports: Hx Anticoagulant Therapy - ASA, Hx Diabetes - lantus, metformin Cardiovascular History: Reports: Hx Hypercholesterolemia, Hx Hypertension Denies: Hx Congestive Heart Failure, Other Cardiovascular Problems/Disorders Respiratory History: Reports: Hx Pneumonia, Other Respiratory Problems/ Disorders - h/o pneumonia Denies: Hx Asthma, Hx Chronic Obstructive Pulmonary Disease (COPD) GI History: Denies: Other GI Disorders History: Denies: Hx Renal Disease Musculoskeletal History: Reports: Hx Arthritis - RIGHT KNEE, SHOULDERS, Hx Gout Sensory History: Reports: Hx Cataracts - both eyes, awaiting surgery, Hx Contacts or Glasses Denies: Hx Eye Injury, Hx Eye Prosthesis, Hx Glaucoma, Hx Legally Blind, Hx Macular Degeneration, Hx Vision Problem, Hx Deafness, Hx Hearing Aid, Hx Hearing Problem, Other Sensory Impairments Opthamlomology History: Reports: Hx Cataracts - both eyes, awaiting surgery, Hx Contacts or Glasses Denies: Hx Eye Injury, Hx Eye Prosthesis, Hx Glaucoma, Hx Legally Blind, Hx Macular Degeneration, Hx Vision Problem, Other Sensory Impairments Neurological History: Denies: Hx Dementia - Surgical History Surgery Procedure, Year, and Place: ARTHROSCOPIC SURGERIES ON KNEES 10 YRS AGO Hx Anesthesia Reactions: No - Immunization History Date of Tetanus Vaccine: PT STATES UNSURE Date of Influenza Vaccine: NONE Infectious Disease History: No Infectious Disease History: Denies: Hx Clostridium Difficile, Hx Hepatitis, Hx Human Immunodeficiency Virus (HIV), Hx of Known/Suspected MRSA, Hx Shingles, Hx Tuberculosis, Hx Known/ Suspected VRE, Hx Known/Suspected VRSA, History Other Infectious Disease, Traveled Outside the [place] in Last 30 Days - Family History Known Family History: Positive: None - denies family history of medical problems., Diabetes - Mother Negative: Cardiac Disease - Social History Occupation: Unemployed Lives: With Family Alcohol Use: None Hx Substance Use: No Substance Use Type: Reports: None Hx Tobacco Use: Yes Smoking Status (MU): Never Smoked Tobacco Review of Systems Constitutional: Negative Negative: Fever, Chills, Fatigue, Skin Diaphoresis ENT: Negative Negative: Palpitations, Chest Pain Negative: Shortness Of Breath, Cough Genitourinary: Negative Positive: no symptoms reported, see HPI Positive: Arthralgia, Myalgia Skin: Negative Psychological: Normal All Other Systems Reviewed And Are Negative: Yes Physical Exam Triage Information Reviewed: Yes Vital Signs On Initial Exam: Initial Vitals Temp Pulse Resp BP Pulse Ox 98.6 F 89 16 143/79 92 08/04/17 10:07 08/04/17 10:07 08/04/17 10:07 08/04/17 10:07 08/04/17 10:07 Vital Signs Reviewed: Yes Appearance: Positive: Well-Appearing, Well-Nourished Skin: Positive: Warm, Skin Color Reflects Adequate Perfusion Head/Face: Positive: Normal Head/Face Inspection Neck: Positive: Supple, Nontender, No Lymphadenopathy Respiratory/Lung Sounds: Positive: Clear to Auscultation, Breath Sounds Present Cardiovascular: Positive: Normal, RRR, Pulses are Symmetrical in both Upper and Lower Extremities Musculoskeletal: Positive: Pain @ - right lateral knee pain - worse with flexion Neurological: Positive: Speech Normal Psychiatric: Positive: Normal, Affect/Mood Appropriate AVPU Assessment: Alert Diagnostics - Vital Signs Vital Signs Temp Pulse Resp BP Pulse Ox 08/04/17 10:07 98.6 F 89 16 143/79 92 - Laboratory Lab Statement: Any lab studies that have been ordered have been reviewed, and results considered in the medical decision making process. Lower Extremity Course/Dx - Course Course Of Treatment: During the course of treatment, the patient's evaluated for right knee pain. X-ray obtained which shows S/P TKR with no other acute findings suggestive of infection or malalignment. There is no pain on deep palpation, however patient endorses pain to the right lateral knee when flexing. Symptoms resolved when extending. There is no swelling, ecchymosis, erythema or warmth to suggest infective etiology. I have advised he use ibuprofen and follow-up with one of our orthopedic physicians for further evaluation. He will return for any worsening pain, erythema or warmth to the area. He understands these return precautions. 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 Discharge - Sign-Out/Discharge Documenting (check all that apply): Discharge/Admit/Transfer - Discharge Plan Condition: Stable Disposition: HOME Prescriptions: Ibuprofen 600 mg PO TID PRN #30 tablet MDD 3 PRN Reason: Pain Patient Education Materials: Knee Pain (ED) Referrals: Kelsy Gordillo MD [Medical Doctor] - Ward Flores MD [Primary Care Provider] - Additional Instructions: Please follow up with orthopedics I have given you name and phone number Please call tomorrow for an appt Ibuprofen 600mg three times daily for pain Do not take for more than 5 days at a time - Billing Disposition and Condition Condition: STABLE Disposition: Home
[2017-08-04 13:11] VITALS: BP 120/75
== END 2017-08-04 12:44 | disposition home or self-care (01) ==
LOC: ED 10:05
DX: M25.561 Pain in right knee (principal); E11.9 Type 2 diabetes mellitus without complications; I10 Essential (primary) hypertension; Z96.651 Presence of right artificial knee joint; Z79.4 Long term (current) use of insulin; Z79.84 Long term (current) use of oral hypoglycemic drugs; Z79.82 Long term (current) use of aspirin; Z88.5 Allergy status to narcotic agent
CPT/HCPCS: 99282

== ENCOUNTER → 2017-09-05 17:26 | Emergency (ER) | payer MEDICARE, BC ==
[~2017-09-05 17:26] MED LIST: Sulfamethox/Trimethoprim DS 800/160* TAB PO ONE; Tetan/Diph/Pertus SYR(Tdap)* 0.5 ML SYR(BOOSTRIX) use SYR IM ONE
--- NOTE | 2017-09-05 18:34 | ED ---
Laceration/Wound HPI - HPI Summary HPI Summary: Patient complains of laceration to volar surface of left thumb with point of kitchen knife. Bleeding controlled. No anti-coag. Tetanus status unknown. Denies loss of sensation or function distally. Medical history is DM. - History of Current Complaint Stated Complaint: RT THUMB LAC Time Seen by Provider: 09/05/17 17:55 Hx Obtained From: Patient Mechanism of Injury: Sharp/Blunt Trauma Onset Severity: Mild Current Severity: Mild Pain Intensity: 2 Pain Scale Used: 0-10 Numeric Associated Signs & Symptoms: Pain - Additional Pertinent History Primary Care Physician: DREA - Allergy/Home Medications Allergies/Adverse Reactions: Allergies Allergy/AdvReac Type Severity Reaction Status Date / Time hydrocodone Allergy Altered Verified 09/05/17 17:40 Mental Status oxycodone Allergy Altered Verified 08/04/17 10:35 Mental Status PMH/Surg Hx/FS Hx/Imm Hx Endocrine/Hematology History: Reports: Hx Anticoagulant Therapy - ASA, Hx Diabetes - lantus, metformin Cardiovascular History: Reports: Hx Hypercholesterolemia, Hx Hypertension Denies: Hx Congestive Heart Failure, Other Cardiovascular Problems/Disorders Respiratory History: Reports: Hx Pneumonia, Other Respiratory Problems/ Disorders - h/o pneumonia Denies: Hx Asthma, Hx Chronic Obstructive Pulmonary Disease (COPD) GI History: Denies: Other GI Disorders History: Denies: Hx Renal Disease Musculoskeletal History: Reports: Hx Arthritis - RIGHT KNEE, SHOULDERS, Hx Gout Sensory History: Reports: Hx Cataracts - both eyes, awaiting surgery, Hx Contacts or Glasses Denies: Hx Eye Injury, Hx Eye Prosthesis, Hx Glaucoma, Hx Legally Blind, Hx Macular Degeneration, Hx Vision Problem, Hx Deafness, Hx Hearing Aid, Hx Hearing Problem, Other Sensory Impairments Opthamlomology History: Reports: Hx Cataracts - both eyes, awaiting surgery, Hx Contacts or Glasses Denies: Hx Eye Injury, Hx Eye Prosthesis, Hx Glaucoma, Hx Legally Blind, Hx Macular Degeneration, Hx Vision Problem, Other Sensory Impairments Neurological History: Denies: Hx Dementia - Surgical History Surgery Procedure, Year, and Place: ARTHROSCOPIC SURGERIES ON KNEES 10 YRS AGO Hx Anesthesia Reactions: No - Immunization History Date of Tetanus Vaccine: PT STATES UNSURE Date of Influenza Vaccine: NONE Infectious Disease History: No Infectious Disease History: Denies: Hx Clostridium Difficile, Hx Hepatitis, Hx Human Immunodeficiency Virus (HIV), Hx of Known/Suspected MRSA, Hx Shingles, Hx Tuberculosis, Hx Known/ Suspected VRE, Hx Known/Suspected VRSA, History Other Infectious Disease, Traveled Outside the [place] in Last 30 Days - Family History Known Family History: Positive: None - denies family history of medical problems., Diabetes - Mother Negative: Cardiac Disease - Social History Alcohol Use: None Hx Substance Use: No Substance Use Type: Reports: None Hx Tobacco Use: Yes Smoking Status (MU): Never Smoked Tobacco Review of Systems Constitutional: Negative Eyes: Negative ENT: Negative Cardiovascular: Negative Respiratory: Negative Gastrointestinal: Negative Genitourinary: Negative Musculoskeletal: Negative Skin: Other Neurological: Negative Psychological: Normal All Other Systems Reviewed And Are Negative: Yes Physical Exam - Summary Physical Exam Summary: Small 3 cm laceration to volar surface of base of left thumb. PMS intact distally.. Patient able to flex and extend, can touch tip of thumb to tips of all other fingers. Triage Information Reviewed: Yes Vital Signs On Initial Exam: Initial Vitals Temp Pulse Resp BP Pulse Ox 99.8 F 99 20 138/77 94 09/05/17 17:36 09/05/17 17:36 09/05/17 17:36 09/05/17 17:36 09/05/17 17:36 Vital Signs Reviewed: Yes Appearance: Positive: Well-Appearing Skin: Positive: Warm Head/Face: Positive: Normal Head/Face Inspection Eyes: Positive: Normal Neck: Positive: Supple Respiratory/Lung Sounds: Positive: Clear to Auscultation Cardiovascular: Positive: Normal Abdomen Description: Positive: Nontender Musculoskeletal: Positive: Normal Neurological: Positive: Normal Psychiatric: Positive: Normal AVPU Assessment: Alert - Ja Coma Scale Best Eye Response: 4 - Spontaneous Best Motor Response: 6 - Obeys Commands Best Verbal Response: 5 - Oriented Coma Scale Total: 15 Procedures - Laceration/Wound Repair 1 Location: upper extremity Description: Irregular Anesthesia: Local, 1.0% Length, Depth and Shape: 3 cm x 1 cm Betadine Prep?: No - chlorhexidine prep Irrigated w/ Saline (ccs): 30 - saline was chlorhexidine Laceration/Wound Explored: clean Debridement: minimal Number of Sutures: 5 - 4.0 etilon Layer Closure?: No Diagnostics - Vital Signs Vital Signs Temp Pulse Resp BP Pulse Ox 09/05/17 17:36 99.8 F 99 20 138/77 94 - Laboratory Lab Statement: Any lab studies that have been ordered have been reviewed, and results considered in the medical decision making process. Laceration Repair Course/Dx - Course Course Of Treatment: Patient complains of laceration to volar surface of left thumb with point of kitchen knife. Bleeding controlled. No anti-coag. Tetanus status unknown. Denies loss of sensation or function distally. Medical history is DM. Small 3 cm laceration to volar surface of base of left thumb. PMS intact distally.. Patient able to flex and extend, can touch tip of thumb to tips of all other fingers. 5 sutures. Patient started on Bactrim here in ED. Rx for Bactrim - Clinical Impression Provider Diagnoses: Laceration Discharge - Sign-Out/Discharge Documenting (check all that apply): Patient Departure - Discharge Plan Condition: Stable Disposition: HOME Prescriptions: Sulfamethox/Trimethoprim DS* [Bactrim DS 800/160 TAB*] 1 tab PO BID 10 Days #20 tab Patient Education Materials: Care For Your Stitches (ED), Laceration (ED) Referrals: Ward Flores MD [Primary Care Provider] - Additional Instructions: Take antibiotics as directed. May wash wound with warm running water and soap. Do not submerge underwater as in swimming for 4 days. Sutures out in 10 days. Follow up with primary care. Return to ED for any new or worsening symptoms. - Billing Disposition and Condition Condition: STABLE Disposition: Home
[2017-09-05 21:02] VITALS: BP 128/80
== END | disposition home or self-care (01) ==
LOC: ED 17:26
DX: S61.012A Laceration without foreign body of left thumb without damage to nail, initial encounter (principal); W26.0XXA Contact with knife, initial encounter; Y92.9 Unspecified place or not applicable
CPT/HCPCS: 90471; 90715; 99282; A9270-GY

== ENCOUNTER 2018-01-05 08:57 | Emergency (ER) | payer MEDICARE, BC ==
[2018-01-05] MEDS ORDERED: NS 0.9% 1000 ML* 1,000 ML IV ONE (09:24)
[2018-01-05] MEDS ORDERED: Meclizine TAB* 12.5 MG PO ONE (09:24)
[2018-01-05] MEDS ORDERED: Ondansetron INJ* 2 MG/ML VIAL IV ONE (09:24)
--- NOTE | 2018-01-05 09:29 | ED ---
Throat Pain/Nasal Congestion - HPI Summary HPI Summary: This patient is a 87 year old M presenting to [facility] with a chief complaint of loss of hearing out of his right ear since 2 days ago. Patient reports loss of balance, dizziness, rhinorrhea, and mild ear pain. Patient denies CP, SOB, palpitations, headaches, and post nasal drip currently (he did before). His son gave him allergy/sinus medication and it did not alleviate the symptoms. - History of Current Complaint Chief Complaint: EDGeneral Time Seen by Provider: 01/05/18 08:58 Hx Obtained From: Patient Onset/Duration: Lasting Days - 2 days ago, Still Present Associated Signs And Symptoms: Positive: Sinus Discomfort - Rhinorrhea - Allergies/Home Medications Allergies/Adverse Reactions: Allergies Allergy/AdvReac Type Severity Reaction Status Date / Time hydrocodone Allergy Altered Verified 01/05/18 09:06 Mental Status oxycodone Allergy Altered Verified 01/05/18 09:06 Mental Status PMH/Surg Hx/FS Hx/Imm Hx Endocrine/Hematology History: Reports: Hx Anticoagulant Therapy - ASA, Hx Diabetes - lantus, metformin Cardiovascular History: Reports: Hx Hypercholesterolemia, Hx Hypertension Denies: Hx Congestive Heart Failure, Other Cardiovascular Problems/Disorders Respiratory History: Reports: Hx Pneumonia, Other Respiratory Problems/ Disorders - h/o pneumonia Denies: Hx Asthma, Hx Chronic Obstructive Pulmonary Disease (COPD) GI History: Denies: Other GI Disorders History: Denies: Hx Renal Disease Musculoskeletal History: Reports: Hx Arthritis - RIGHT KNEE, SHOULDERS, Hx Gout Sensory History: Reports: Hx Cataracts - both eyes, awaiting surgery, Hx Contacts or Glasses Denies: Hx Eye Injury, Hx Eye Prosthesis, Hx Glaucoma, Hx Legally Blind, Hx Macular Degeneration, Hx Vision Problem, Hx Deafness, Hx Hearing Aid, Hx Hearing Problem, Other Sensory Impairments Opthamlomology History: Reports: Hx Cataracts - both eyes, awaiting surgery, Hx Contacts or Glasses Denies: Hx Eye Injury, Hx Eye Prosthesis, Hx Glaucoma, Hx Legally Blind, Hx Macular Degeneration, Hx Vision Problem, Other Sensory Impairments Neurological History: Denies: Hx Dementia - Surgical History Surgery Procedure, Year, and Place: ARTHROSCOPIC SURGERIES ON KNEES 10 YRS AGO Hx Anesthesia Reactions: No - Immunization History Date of Tetanus Vaccine: PT STATES UNSURE Date of Influenza Vaccine: NONE Infectious Disease History: No Infectious Disease History: Denies: Hx Clostridium Difficile, Hx Hepatitis, Hx Human Immunodeficiency Virus (HIV), Hx of Known/Suspected MRSA, Hx Shingles, Hx Tuberculosis, Hx Known/ Suspected VRE, Hx Known/Suspected VRSA, History Other Infectious Disease, Traveled Outside the [place] in Last 30 Days - Family History Known Family History: Positive: Diabetes - Mother Negative: Cardiac Disease - Social History Alcohol Use: None Hx Substance Use: No Substance Use Type: Reports: None Hx Tobacco Use: Yes Smoking Status (MU): Never Smoked Tobacco Review of Systems Positive: Ear Ache - Mild on right ear, Other - Loss of hearing out of his right ear. Loss of balance. Negative: Palpitations, Chest Pain Positive: Other - Rhinorrhea. Denies post nasal drip currently (he had it before ). . Negative: Shortness Of Breath Neurological: Other - Dizziness Negative: Headache All Other Systems Reviewed And Are Negative: Yes Physical Exam - Summary Physical Exam Summary: VITAL SIGNS: Reviewed. GENERAL: Patient is a well-developed and nourished MALE who is lying comfortable in the stretcher. Patient is not in any acute respiratory distress. HEAD AND FACE: No signs of trauma. No ecchymosis, hematomas or skull depressions. No sinus tenderness. EYES: PERRLA, EOMI x 2, No injected conjunctiva, no nystagmus. EARS: Hearing grossly intact. Ear canals and tympanic membranes are within normal limits. MOUTH: Oropharynx within normal limits. NECK: Supple, trachea is midline, no adenopathy, no JVD, no carotid bruit, no c- spine tenderness, neck with full ROM. CHEST: Symmetric, no tenderness at palpation LUNGS: Clear to auscultation bilaterally. No wheezing or crackles. CVS: Regular rate and rhythm, S1 and S2 present, no murmurs or gallops appreciated. ABDOMEN: Soft, non-tender. No signs of distention. No rebound no guarding, and no masses palpated. Bowel sounds are normal. EXTREMITIES: FROM in all major joints, no edema, no cyanosis or clubbing. NEURO: Alert and oriented x 3. No acute neurological deficits. Speech is normal and follows commands. SKIN: Dry and warm Triage Information Reviewed: Yes Vital Signs On Initial Exam: Initial Vitals Temp Pulse Resp BP Pulse Ox 98.5 F 82 14 144/68 96 01/05/18 09:02 01/05/18 09:02 01/05/18 09:02 01/05/18 09:02 01/05/18 09:02 Vital Signs Reviewed: Yes Diagnostics - Vital Signs Vital Signs Temp Pulse Resp BP Pulse Ox 01/05/18 09:02 98.5 F 82 14 144/68 96 - Laboratory Result Diagrams: 01/05/18 09:48 01/05/18 09:48 Lab Statement: Any lab studies that have been ordered have been reviewed, and results considered in the medical decision making process. - Radiology Chest X-Ray Radiology Interpretation Completed By: Radiologist - 09:56. There is likely chronic interstitial disease in the lung bases. No definite pneumonia is noted. ED Physician has reviewed this imaging report. - CT Brain CT CT Interpretation Completed By: Radiologist - 09:56. No intracranial mass or hemorrhage is noted. Ethmoid sinusitis. ED Physician has reviewed this imaging report. - EKG 09:40 Cardiac Rate: NL - 74 BPM EKG Rhythm: Sinus Rhythm EKG Comparison: No Significant Change - Similar to 06/14/2013 Summary of EKG Findings: Right bundle branch block EENT Course/Dx - Course Assessment/Plan: This patient is a 87 year old M presenting to [facility] with a chief complaint of loss of hearing out of his right ear since 2 days ago. Patient reports loss of balance, dizziness, rhinorrhea, and mild ear pain. Patient denies CP, SOB, palpitations, headaches, and post nasal drip currently ( he did before). His son gave him allergy/sinus medication and it did not alleviate the symptoms. blood work without any significant abnormality except for glucose of 318 which the patient was given insulin and IV fluids. Magnesium was 1.6 for which the patient was given magnesium by mouth. The patient also was given IV fluids, and meclizine for the dizziness. Head CT impression: No intracranial mass or hemorrhage is noted. Ethmoid sinusitis. 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 No pneumonia is noted. The patient also was given Augmentin for the acute sinusitis. I discussed all the findings and test results with the patient. Patient was instructed to return to the emergency room immediately if any of the symptoms return or worsens. Plan of care was discussed with the patient and understands and agrees. All questions were answered at patient satisfaction. There were no further complaints or concerns. Lung exam before discharge: CTA B/L. Good air exchange. No wheezing or crackles heard. CVS: S1 and S2 present. No murmurs appreciated. Patient is alert and oriented x 3. Patient is hemodynamically stable. Patient will be discharged home with follow up PCP in the next 2-3 days - Differential Diagnoses Differential Diagnoses: Cerumen Impaction, Otitis Externa, Otitis Media, Sinusitis, Other - Vertigo - Diagnoses Provider Diagnoses: Vertigo, Sinusitis, Hyperglycemia Discharge - Sign-Out/Discharge Documenting (check all that apply): Patient Departure - Discharge Plan Condition: Stable Disposition: HOME Prescriptions: Amoxicillin/Clavulanate TAB* [Augmentin TAB 875*] 875 mg PO BID #20 tab Meclizine TAB* [Antivert 12.5 TAB*] 25 mg PO TID #30 tab Patient Education Materials: Sinusitis (ED), Vertigo (ED), Diabetic Hyperglycemia (ED) Referrals: Ward Flores MD [Primary Care Provider] - 3 Days Additional Instructions: FOLLOW UP WITH YOUR PRIMARY CARE PROVIDER WITHIN ONE WEEK FOR HIGH BLOOD PRESSURE NOTED TODAY. RETURN TO THE ED FOR ANY WORSENING OR NEW SYMPTOMS - Billing Disposition and Condition Condition: STABLE Disposition: Home - Attestation Statements Document Initiated by Scribe: Yes Documenting Scribe: Eleazar Villanueva Provider For Whom Anibal is Documenting (Include Credential): Raji Medellin MD Scribe Attestation: Eleazar Kuhn scribed for Raji Medellin MD on 01/05/18 at 1842. Scribe Documentation Reviewed: Yes Provider Attestation: The documentation as recorded by the Eleazar mccabe accurately reflects the service I personally performed and the decisions made by me, Raji Medellin MD
[2018-01-05 10:06] LABS: ABS Basophils 0 10^3/ul (0-0.2); ABS Eosinophils 0.1 10^3/ul (0-0.6); ABS Lymphocytes 2.2 10^3/ul (1.0-4.8); ABS Monocytes 0.5 10^3/ul (0-0.8); ABS Neutrophils 4.5 10^3/ul (1.5-7.7); ABS Nucleated RBC 0 10^3/ul; Eosinophil % 1.7 % (0-6); Hematocrit 42 % (42-52); Hemoglobin 14.1 g/dl (14.0-18.0); Lymphocyte % 29.6 % (25-47); Mean Corpuscular HGB Conc 34 g/dl (31-36); Mean Corpuscular Hemoglobin 31 pg (27-31); Mean Corpuscular Volume 91 fL (80-94); Mean Platelet Volume 6.9 fL (7.4-10.4); Nucleated Red Blood Cells % 0; Platelet Count 240 10^3/ul (150-450); Red Blood Count 4.63 10^6/ul (4.00-5.40); Red Cell Distribution Width 14 % (10.5-15); White Blood Count 7.4 10^3/ul (3.5-10.8)
[2018-01-05 10:21] LABS: EGFR Non-African American 68.6 (>60)
[2018-01-05] MEDS ORDERED: Insulin REGULAR(*) 1 UNITS UNIT SUBCUT ONE (11:18)
[2018-01-05] MEDS ORDERED: Amoxicillin/Clavulanate TAB* 875 MG PO ONE (11:21)
[2018-01-05 11:42] LABS: Urine Appearance Clear; Urine Blood 1+ (Negative); Urine Color Yellow; Urine Ketones Negative (Negative); Urine Protein Negative (Negative); Urine Red Blood Cell 1+(3-5/hpf) (Absent); Urine Specific Gravity 1.017 (1.010-1.030); Urine Urobilinogen Negative (Negative); Urine White Blood Cell Trace(0-5/hpf) (Absent)
[2018-01-05 13:18] VITALS: BP 135/80
== END 2018-01-05 13:25 | disposition home or self-care (01) ==
LOC: ED 08:57
DX: R42 Dizziness and giddiness (principal); J01.90 Acute sinusitis, unspecified; E11.65 Type 2 diabetes mellitus with hyperglycemia; Z79.01 Long term (current) use of anticoagulants
CPT/HCPCS: 36415; 70450; 71046; 80053; 81003; 81015; 83605; 83735; 84443; 84484; 85025; 86140; 87086; 93005; 96361; 96372; 96374; 99283; A9270-GY; J2405

== ENCOUNTER 2018-01-14 10:08 | Emergency (ER) | payer MEDICARE, BC ==
--- NOTE | 2018-01-14 10:53 | ED ---
Throat Pain/Nasal Congestion - HPI Summary HPI Summary: Patient is a 87 y/o M w/ c/o right ear congestion and dizziness. Sx onset , patient was seen 01/05/18 [facility], states he was prescribed antibiotics and meclizine. He states that he has not experienced any relief in Sx after taking medications. Patient reports that Sx onset 01/01 after waking up in the morning and exacerbated the following day. In room, patient states that he cannot hear out of his right ear. He reports dizziness while standing/walking. Patient's family member states that patient "looks drunk while walking" since Sx onset. He also reports nonproductive cough and sneezing as well. FMHx of sinus problems is reported. Patient notes that he has had similar Sx in the past, had his ears cleaned which resolved Sx. He denies N/V, abdominal pain, fever. Patient called PCP today. Nurse states that PCP would not be available today or tomorrow, noted that if dizziness was severe to go to ED for evaluation. No Hx of falls is reported. On triage, pain is denied, nothing is noted to aggravate/ alleviate Sx. Home medications and allergies are reviewed. - History of Current Complaint Chief Complaint: EDGeneral Time Seen by Provider: 01/14/18 10:29 Hx Obtained From: Patient Onset/Duration: Lasting Weeks - onset 01/01/18, Still Present, Worse Since - day after Sx onset Severity: Moderate Associated Signs And Symptoms: Positive: Negative Cough: Nonproductive - Allergies/Home Medications Allergies/Adverse Reactions: Allergies Allergy/AdvReac Type Severity Reaction Status Date / Time hydrocodone Allergy Altered Verified 01/05/18 09:06 Mental Status oxycodone Allergy Altered Verified 01/05/18 09:06 Mental Status PMH/Surg Hx/FS Hx/Imm Hx Endocrine/Hematology History: Reports: Hx Anticoagulant Therapy - ASA, Hx Diabetes - lantus, metformin Cardiovascular History: Reports: Hx Hypercholesterolemia, Hx Hypertension Denies: Hx Congestive Heart Failure, Other Cardiovascular Problems/Disorders Respiratory History: Reports: Hx Pneumonia, Other Respiratory Problems/ Disorders - h/o pneumonia Denies: Hx Asthma, Hx Chronic Obstructive Pulmonary Disease (COPD) GI History: Denies: Other GI Disorders History: Denies: Hx Renal Disease Musculoskeletal History: Reports: Hx Arthritis - RIGHT KNEE, SHOULDERS, Hx Gout Sensory History: Reports: Hx Cataracts - both eyes, awaiting surgery, Hx Contacts or Glasses Denies: Hx Eye Injury, Hx Eye Prosthesis, Hx Glaucoma, Hx Legally Blind, Hx Macular Degeneration, Hx Vision Problem, Hx Deafness, Hx Hearing Aid, Hx Hearing Problem, Other Sensory Impairments Opthamlomology History: Reports: Hx Cataracts - both eyes, awaiting surgery, Hx Contacts or Glasses Denies: Hx Eye Injury, Hx Eye Prosthesis, Hx Glaucoma, Hx Legally Blind, Hx Macular Degeneration, Hx Vision Problem, Other Sensory Impairments Neurological History: Denies: Hx Dementia - Surgical History Surgery Procedure, Year, and Place: ARTHROSCOPIC SURGERIES ON KNEES 10 YRS AGO Hx Anesthesia Reactions: No - Immunization History Date of Tetanus Vaccine: PT STATES UNSURE Date of Influenza Vaccine: NONE Infectious Disease History: No Infectious Disease History: Denies: Hx Clostridium Difficile, Hx Hepatitis, Hx Human Immunodeficiency Virus (HIV), Hx of Known/Suspected MRSA, Hx Shingles, Hx Tuberculosis, Hx Known/ Suspected VRE, Hx Known/Suspected VRSA, History Other Infectious Disease, Traveled Outside the [place] in Last 30 Days - Family History Known Family History: Positive: Diabetes - Mother, Other - FMHx of sinus conditions Negative: Cardiac Disease - Social History Alcohol Use: None Hx Substance Use: No Substance Use Type: Reports: None Hx Tobacco Use: Yes Smoking Status (MU): Never Smoked Tobacco Review of Systems Negative: Fever Positive: Other - right ear congestion Positive: Cough - nonproductive , Other - sneezing Negative: Abdominal Pain, Vomiting, Nausea Neurological: Other - POSITIVE - DIZZINESS All Other Systems Reviewed And Are Negative: Yes Physical Exam - Summary Physical Exam Summary: Appearance: Well-appearing, Well-nourished, lying in bed comfortably Skin: Warm, dry, no obvious rash Eyes: sclera anicteric, no conjunctival pallor ENT: mucous membranes moist, pharynx appears normal. Ear canals and are clear and free of wax. TMs are pearly bilaterally with normal landmarks visible. Neck: Supple, nontender Respiratory: Clear to auscultation, no signs of respiratory distress Cardiovascular: Normal S1, S2. No murmurs. Normal distal pulses in tibial and radial bilaterally. Abdomen: Soft, nontender, normal active bowel sounds present Musculoskeletal: Normal, Strength/ROM Intact, Motor function in all 4 extremities is normal and symmetric. There is no rigidity or tremor noted. Neurological: A&Ox3, awake and alert, mentation is normal, speech is fluent and appropriate, Level of consciousness nml. The patient is alert and oriented. Cranial nerves are grossly intact. Gaze is conjugate and without nystagmus. Peripheral vision is intact to confrontation. There are no gross sensory abnormalities to light touch. There is no fine motor ataxia. Some trouble with ambulation, cannot do so without support. GCS 15, NIH 0 Psychiatric: affect is normal, does not appear anxious or depressed Triage Information Reviewed: Yes Vital Signs On Initial Exam: Initial Vitals Temp Pulse Resp BP Pulse Ox 98.5 F 83 18 125/85 97 01/14/18 10:12 01/14/18 10:12 01/14/18 10:12 01/14/18 10:12 01/14/18 10:12 Vital Signs Reviewed: Yes - Allen Coma Scale Best Eye Response: 4 - Spontaneous Best Motor Response: 6 - Obeys Commands Best Verbal Response: 5 - Oriented Coma Scale Total: 15 Diagnostics - Vital Signs Vital Signs Temp Pulse Resp BP Pulse Ox 01/14/18 10:12 98.5 F 83 18 125/85 97 - Laboratory Result Diagrams: 01/14/18 11:57 01/14/18 11:57 Lab Statement: Any lab studies that have been ordered have been reviewed, and results considered in the medical decision making process. - Radiology BRAIN MRI Radiology Interpretation Completed By: Radiologist Summary of Radiographic Findings: BRAIN MRI IMPRESSION: No restriction of diffusion is noted although central and cortical atrophy is. noted. There appears to be mild ethmoid sinusitis noted. This report was reviewed by ED physician. - EKG 1150 Cardiac Rate: NL - rate of 76 BPM EKG Rhythm: Sinus Rhythm Summary of EKG Findings: EKG shows sinus rhythm with rate of 76 BPM, right bundle branch block, old inferior infarct. EENT Course/Dx - Course Course Of Treatment: Patient is a 87 y/o M w/ c/o right ear congestion and dizziness. Sx onset 01/01/18, patient was seen 01/05/18 [facility], states he was prescribed antibiotics and meclizine. He states that he has not experienced any relief in Sx after taking medications. Patient reports that Sx onset 01/01 after waking up in the morning and exacerbated the following day. In room, patient states that he cannot hear out of his right ear. He reports dizziness while standing/walking. Patient's family member states that patient "looks drunk while walking" since Sx onset. He also reports nonproductive cough and sneezing as well. FMHx of sinus problems is reported. Patient notes that he has had similar Sx in the past, had his ears cleaned which resolved Sx. He denies N/ V, abdominal pain, fever. Patient called PCP today. Nurse states that PCP would not be available today or tomorrow, noted that if dizziness was severe to go to ED for evaluation. No Hx of falls is reported. On physical exam, NIH 0, GCS 15. There is no fine motor ataxia. Some trouble with ambulation, cannot do so without support. Labs showed Hct 41, MPV 6.7, INR 1.04, lactic acid 0.6. BRAIN MRI IMPRESSION: No restriction of diffusion is noted although central and cortical atrophy is. noted. There appears to be mild ethmoid sinusitis noted. EKG shows sinus rhythm with rate of 76 BPM, right bundle branch block, old inferior infarct. Patient was discharged to home and advised to follow up with specialist for vestibular rehabilitation if Sx do not appear to be improving. - Diagnoses Provider Diagnoses: Peripheral vertigo Discharge - Sign-Out/Discharge Documenting (check all that apply): Patient Departure - discharge - Discharge Plan Condition: Stable Disposition: HOME Patient Education Materials: Benign Paroxysmal Positional Vertigo (ED) Referrals: Ward Flores MD [Primary Care Provider] - Additional Instructions: This problem usually gets better on its own within a week, but it can last longer, even several weeks. Be careful when you get up that you have something to hold onto. If it does not seem to be improving your doctor can refer you to a specialist for vestibular rehabilitation. - Billing Disposition and Condition Condition: STABLE Disposition: Home - Attestation Statements Document Initiated by Anibal: Yes Documenting Scribe: ANT PERKINS Provider For Whom Anibal is Documenting (Include Credential): BRIANNA CUMMINGS MD Scribe Attestation: ANT Kuhn , scribed for BRIANNA CUMMINGS MD on 01/15/18 at 1005. Scribe Documentation Reviewed: Yes Provider Attestation: The documentation as recorded by the ANT mccabe accurately reflects the service I personally performed and the decisions made by me, BRIANNA CUMMINGS MD Status of Scribe Document: Viewed NIH Scale - NIH Scale Level of Consciousness: Alert/Keenly Responsive Ask Patient the Month and His/Her Age: Both Correct Ask Pt to Open/Close Eyes and Chief Client Officer/Release Non-Paretic Hand: Both Correctly Best Gaze (Only Horizontal Eye Movement): Normal Visual Field Testing: No Visual Loss Facial Paresis-Pt to Smile & Close Eyes or Grimace Symmetry: Normal/Symmetrical Motor Function - Right Arm: No Drift-Holds 10 Seconds Motor Function - Left Arm: No Drift-Holds 10 Seconds Motor Function - Right Leg: No Drift-Holds 10 Seconds Motor Function - Left Leg: No Drift-Holds 10 Seconds Limb Ataxia-Must be out of Proportion to Weakness Present: Absent Sensory (Use Pinprick to Test Arms/Legs/Trunk/Face): Normal Best Language (Describe Picture, Name Items): No Aphasia Dysarthria (Read Several Words): Normal Extinction and Inattention: No Abnormality Total Score: 0
[2018-01-14 12:07] LABS: ABS Basophils 0 10^3/ul (0-0.2); ABS Eosinophils 0.2 10^3/ul (0-0.6); ABS Lymphocytes 2.5 10^3/ul (1.0-4.8); ABS Monocytes 0.6 10^3/ul (0-0.8); ABS Neutrophils 3.7 10^3/ul (1.5-7.7); ABS Nucleated RBC 0 10^3/ul; Eosinophil % 2.6 %; Hematocrit 41 % (42-52); Hemoglobin 14.1 g/dl (14.0-18.0); Lymphocyte % 35.8 %; Mean Corpuscular HGB Conc 34 g/dl (31-36); Mean Corpuscular Hemoglobin 31 pg (27-31); Mean Corpuscular Volume 90 fL (80-94); Mean Platelet Volume 6.7 fL (7.4-10.4); Nucleated Red Blood Cells % 0.2; Platelet Count 242 10^3/ul (150-450); Red Blood Count 4.57 10^6/ul (4.00-5.40); Red Cell Distribution Width 14 % (10.5-15)
[2018-01-14 12:17] LABS: INR 1.04 (0.77-1.02)
[2018-01-14 12:30] LABS: EGFR Non-African American 84.5 (>60)
[2018-01-14 12:36] VITALS: BP 136/77
== END 2018-01-14 12:35 | disposition home or self-care (01) ==
LOC: ED 10:08
DX: H81.391 Other peripheral vertigo, right ear (principal); E78.00 Pure hypercholesterolemia, unspecified; I10 Essential (primary) hypertension; Z79.82 Long term (current) use of aspirin; E11.8 Type 2 diabetes mellitus with unspecified complications; Z79.84 Long term (current) use of oral hypoglycemic drugs
CPT/HCPCS: 36415; 70551; 80053; 83605; 84484; 85025; 85610; 93005; 99282

== ENCOUNTER 2018-08-11 09:33 | Emergency (ER) | payer MEDICARE, BC ==
[2018-08-11 10:38] VITALS: BP 138/77
--- NOTE | 2018-08-11 10:49 | ED ---
Upper Extremity Pain - HPI Summary HPI Summary: Patient is an 88-year-old male presenting to the ED with right elbow injury. He states last evening he was attempting to work on his lawnmower and reached up and felt like he twisted something in the elbow. Since that time the area has been more swollen and painful. Patient is unable to extend fully, however is able to flex. He is endorsing pain to the posterior portion of the elbow without numbness or tingling, erythema or ecchymosis to the area. He has never injured the elbow in the past. He takes tramadol at home for pain and his taken this for his elbow, however has not tried anti-inflammatories. He denies any other pain, injuries or concerns. - History of Current Complaint Chief Complaint: EDExtremityUpper Stated Complaint: ARM SWELLING Time Seen by Provider: 08/11/18 09:38 Hx Obtained From: Patient Mechanism Of Injury: Twisted Onset/Duration: Started Hours Ago Timing: Constant Severity Initially: Moderate Severity Currently: Moderate Pain Location: Elbow Character: Aching Aggravating Factor(s): Movement, Lifting, Flexion, Extension, Internal/External Rotation Alleviating Factor(s): Rest, Ice Associated Signs & Symptoms: Positive: Swelling. Negative: Redness, Bruising, Numbness/Tingling Related History: Dominant Hand Right - Risk Factors Non-Orthopedic Risk Factor: Negative DVT Risk Factors: Negative Compartment Syndrome Risk Factors: Pain - Allergies/Home Medications Allergies/Adverse Reactions: Allergies Allergy/AdvReac Type Severity Reaction Status Date / Time hydrocodone Allergy Altered Verified 08/11/18 09:34 Mental Status oxycodone Allergy Altered Verified 08/11/18 09:34 Mental Status PMH/Surg Hx/FS Hx/Imm Hx Previously Healthy: Yes Endocrine/Hematology History: Reports: Hx Anticoagulant Therapy - ASA, Hx Diabetes - lantus, metformin Cardiovascular History: Reports: Hx Hypercholesterolemia, Hx Hypertension Denies: Hx Congestive Heart Failure, Hx Pacemaker/ICD, Other Cardiovascular Problems/Disorders Respiratory History: Reports: Hx Pneumonia, Other Respiratory Problems/ Disorders - h/o pneumonia Denies: Hx Asthma, Hx Chronic Obstructive Pulmonary Disease (COPD) GI History: Denies: Other GI Disorders History: Denies: Hx Renal Disease Musculoskeletal History: Reports: Hx Arthritis - RIGHT KNEE, SHOULDERS, Hx Gout Sensory History: Reports: Hx Cataracts - both eyes, awaiting surgery, Hx Contacts or Glasses Denies: Hx Eye Injury, Hx Eye Prosthesis, Hx Glaucoma, Hx Legally Blind, Hx Macular Degeneration, Hx Vision Problem, Hx Deafness, Hx Hearing Aid, Hx Hearing Problem, Other Sensory Impairments Opthamlomology History: Reports: Hx Cataracts - both eyes, awaiting surgery, Hx Contacts or Glasses Denies: Hx Eye Injury, Hx Eye Prosthesis, Hx Glaucoma, Hx Legally Blind, Hx Macular Degeneration, Hx Vision Problem, Other Sensory Impairments Neurological History: Denies: Hx Dementia Psychiatric History: Denies: Hx Panic Disorder - Surgical History Surgery Procedure, Year, and Place: ARTHROSCOPIC SURGERIES ON KNEES 10 YRS AGO Hx Anesthesia Reactions: No - Immunization History Date of Tetanus Vaccine: PT STATES UNSURE Date of Influenza Vaccine: NONE Hx Pertussis Vaccination: No Immunizations Up to Date: Yes Infectious Disease History: No Infectious Disease History: Denies: Hx Clostridium Difficile, Hx Hepatitis, Hx Human Immunodeficiency Virus (HIV), Hx of Known/Suspected MRSA, Hx Shingles, Hx Tuberculosis, Hx Known/ Suspected VRE, Hx Known/Suspected VRSA, History Other Infectious Disease, Traveled Outside the [place] in Last 30 Days - Family History Known Family History: Positive: Diabetes - Mother, Other - FMHx of sinus conditions Negative: Cardiac Disease - Social History Occupation: Unemployed Lives: With Family Alcohol Use: None Hx Substance Use: No Substance Use Type: Reports: None Hx Tobacco Use: Yes Smoking Status (MU): Never Smoked Tobacco Review of Systems Constitutional: Negative Negative: Fever, Chills, Fatigue, Skin Diaphoresis Negative: Palpitations, Chest Pain Negative: Shortness Of Breath, Cough Genitourinary: Negative Positive: no symptoms reported, see HPI Positive: Arthralgia Skin: Negative Neurological: Negative All Other Systems Reviewed And Are Negative: Yes Physical Exam Triage Information Reviewed: Yes Vital Signs On Initial Exam: Initial Vitals Temp Pulse Resp BP Pulse Ox 98.5 F 89 16 148/84 96 08/11/18 09:34 08/11/18 09:34 08/11/18 09:34 08/11/18 09:34 08/11/18 09:34 Vital Signs Reviewed: Yes Appearance: Positive: Well-Appearing, Well-Nourished Skin: Positive: Warm, Skin Color Reflects Adequate Perfusion Head/Face: Positive: Normal Head/Face Inspection Eyes: Positive: EOMI, Conjunctiva Clear Neck: Positive: Supple, No Lymphadenopathy Respiratory/Lung Sounds: Positive: Clear to Auscultation, Breath Sounds Present Cardiovascular: Positive: Pulses are Symmetrical in both Upper and Lower Extremities Musculoskeletal: Positive: Pain @ - right elbow with swelling - no erythema Neurological: Positive: Speech Normal Psychiatric: Positive: Affect/Mood Appropriate Diagnostics - Vital Signs Vital Signs Temp Pulse Resp BP Pulse Ox 08/11/18 10:33 81 138/77 93 08/11/18 10:26 80 123/75 94 08/11/18 10:01 85 96 08/11/18 09:57 83 153/85 95 08/11/18 09:34 98.5 F 89 16 148/84 96 - Laboratory Lab Statement: Any lab studies that have been ordered have been reviewed, and results considered in the medical decision making process. Course/Dx - Course Course Of Treatment: Patient is evaluated for right elbow injury. On physical examination, there is obvious swelling to the right elbow without apparent effusion. The area appears to be a bursitis. There is no erythema or ecchymosis. Patient is unable to extend at the elbow, however is able to flex. He has taken 1 tramadol without much relief. He also states he has a sling at home which has helped with his symptoms since last evening. Patient denies any fevers, sweats, chills and vital signs are stable on arrival. Elbow x-ray obtained which shows moderately severe osteoarthritis with associated large joint effusion and loose body at the olecranon fossa without significant interval change. This was discussed with the patient. Provider then called orthopedics to secure an appointment with Dr. Merritt on August 13 at 9 AM. Patient states he is able to make this appointment. He will ice and use ibuprofen until that time and understands return precautions, specifically if the area becomes red or even more swollen. - Diagnoses Differential Diagnosis/HQI/PQRI: Positive: Strain, Sprain Provider Diagnoses: Bursitis, Elbow strain Discharge - Sign-Out/Discharge Documenting (check all that apply): Patient Departure Patient Received Moderate/Deep Sedation with Procedure: No - Discharge Plan Condition: Stable Disposition: HOME Patient Education Materials: Elbow Bursitis (ED) Referrals: Ward Flores MD [Primary Care Provider] - Renee Merritt MD [Medical Doctor] - Additional Instructions: Please follow up with orthopedics at 9am on August [address] Merritt to further evaluate this swollen joint Ibuprofen 600mg three times daily x 4-5 days Ice to the area as much as possible (4-5 times daily) You may keep the arm in the sling for comfort - Billing Disposition and Condition Condition: STABLE Disposition: Home
== END 2018-08-11 10:50 | disposition home or self-care (01) ==
LOC: ED 09:33
DX: S46.811A Strain of other muscles, fascia and tendons at shoulder and upper arm level, right arm, initial encounter (principal); M70.31 Other bursitis of elbow, right elbow; X50.9XXA Other and unspecified overexertion or strenuous movements or postures, initial encounter; E11.9 Type 2 diabetes mellitus without complications; I10 Essential (primary) hypertension; Z79.82 Long term (current) use of aspirin; Z79.4 Long term (current) use of insulin; Z88.5 Allergy status to narcotic agent; M19.021 Primary osteoarthritis, right elbow
CPT/HCPCS: 99282

== ENCOUNTER 2020-10-18 15:51 | Inpatient (IN) ==
[2020-10-18] MEDS ORDERED: Ondansetron ODT 4 mg TAB 4 MG TAB SL ONE (17:38)
[2020-10-18 21:24] LABS: ABS Lymphocytes 1.7 10^3/ul (1.0-4.8); ABS Monocytes 0.7 10^3/ul (0-0.8); ABS Neutrophils 3.6 10^3/ul (1.5-7.7); Eosinophil % 0.2 %; Hematocrit 35 % (42-52); Hemoglobin 12.1 g/dL (14.0-18.0); Lymphocyte % 28.7 %; Mean Corpuscular HGB Conc 34 g/dL (31-36); Mean Corpuscular Hemoglobin 31 pg (27-31); Mean Corpuscular Volume 91 fL (80-94); Mean Platelet Volume 6.6 fL (7.4-10.4); Nucleated Red Blood Cells % 0.1; Platelet Count 241 10^3/uL (150-450); Red Blood Count 3.89 10^6 /uL (4.18-5.48); Red Cell Distribution Width 14 % (10-15); White Blood Count 6.1 10^3/uL (3.5-10.8)
[2020-10-18 21:29] LABS: Urine Appearance Cloudy; Urine Bilirubin Negative (Negative); Urine Blood 2+ (Negative); Urine Color Yellow; Urine Glucose Negative (Negative); Urine Ketones Negative (Negative); Urine Nitrite Negative (Negative); Urine Protein 1+(30 mg/dL) (Negative); Urine Specific Gravity 1.016 (1.002-1.030); Urine Urobilinogen Negative (Negative)
[2020-10-18 21:33] LABS: Activated Partial Thrombo Time 31.6 seconds (26.0-38.0); INR 1.24 (0.86-1.15)
[2020-10-18 21:34] LABS: Urine Bacteria Absent (Absent); Urine Red Blood Cell 1+(3-5/hpf) (Absent); Urine Squamous Epithelial Cell Present (Absent); Urine White Blood Cell Trace(0-5/hpf) (Absent)
[2020-10-18 21:42] LABS: ALT 15 U/L (7-52); Albumin 3.3 g/dL (3.2-5.2); Albumin/Globulin Ratio 0.9 (1-3); Alkaline Phosphatase 70 U/L (35-149); Blood Urea Nitrogen 19 mg/dL (6-24); CO2 Carbon Dioxide 27 mmol/L (22-32); Calcium 8.7 mg/dL (8.6-10.3); Chloride 98 mmol/L (101-111); EGFR African American 91.6 (>60); EGFR Non-African American 75.7 (>60); Globulin 3.5 g/dL (2-4); Glucose 165 mg/dL (70-100); Lipase 20 U/L (11.0-82.0); Magnesium 1.6 mg/dL (1.9-2.7); Sodium 130 mmol/L (135-145); Total Protein 6.8 g/dL (6.4-8.9)
[2020-10-18 21:44] LABS: AST 35 U/L (13-39); Anion Gap 5 mmol/L (2-11)
[2020-10-18 21:57] LABS: Troponin I 0.06 ng/mL (<0.03)
[2020-10-18] MEDS ORDERED: Iodixanol (CONTRAST) 320 MG/ML 100 ML SDV IV ONE (22:03)
[2020-10-19] MEDS ORDERED: Dexamethasone IV 4 MG/ML VIAL 1 ml VIAL PO ONE (01:20)
[2020-10-19] MEDS ORDERED: Dextrose 50% Syringe 50 ml 25 GM/50 ML SYRINGE IV PUSH PRN (01:41)
[2020-10-19] MEDS ORDERED: Magnesium Sulfate 2 gm BAG 2 GM/50 ML BAG IVPB ONE (01:44)
[2020-10-19 02:05] LABS: Total Iron Binding Capacity 227 mcg/dL (250-450); Transferrin 162 mg/dL (203-362)
[2020-10-19] MEDS ORDERED: Remdesivir 100 mg Vial 200 MG in NS 0.9% 250 ml 210 ML IV ONE (02:17)
[2020-10-19 02:24] LABS: Ferritin 515.7 ng/mL (24-336)
[2020-10-19 02:27] LABS: Troponin I 0.07 ng/mL (<0.03)
[2020-10-19] MEDS ORDERED: Dexamethasone IV 4 MG/ML VIAL 1 ml VIAL IV SLOW PU ONE (02:30)
[2020-10-19 02:46] LABS: % Iron Saturation 9 % (15-55); Iron < 20 ug/dL (50-212); Unsaturated Iron Binding < 212 ug/dL
[2020-10-19] MEDS ORDERED: NS 0.9% 500 ml BAG 500 ML IV ONE (02:59)
[2020-10-19] MEDS: Enoxaparin 60 MG/0.6 ML SYR SUBCUT SCH ×2 (03:25→14:35)
[2020-10-19] MEDS: Aspirin EC 81 mg TAB.EC (enteric coated) PO SCH (07:47)
[2020-10-19 09:43] LABS: ALT 17 U/L (7-52); AST 33 U/L (13-39); Albumin 3.3 g/dL (3.2-5.2); Albumin/Globulin Ratio 0.9 (1-3); Alkaline Phosphatase 81 U/L (35-149); Anion Gap 5 mmol/L (2-11); Blood Urea Nitrogen 19 mg/dL (6-24); CO2 Carbon Dioxide 28 mmol/L (22-32); Calcium 8.5 mg/dL (8.6-10.3); Chloride 97 mmol/L (101-111); EGFR African American 83.4 (>60); EGFR Non-African American 68.9 (>60); Globulin 3.7 g/dL (2-4); Glucose 223 mg/dL (70-100); Magnesium 2.1 mg/dL (1.9-2.7); Potassium 4.7 mmol/L (3.5-5.0); Sodium 130 mmol/L (135-145)
[2020-10-19 10:04] LABS: Troponin I 0.06 ng/mL (<0.03)
[2020-10-19] MEDS ORDERED: Perflutren Lipid Microsphere 3 ML VIAL ONE (15:16)
[2020-10-19] MEDS ORDERED: Lactated Ringers 500 ml BAG 500 ML IV ONE ×2 (19:52→23:51)
[2020-10-19] MEDS ORDERED: Lactated Ringers 1000 ml BAG 1,000 ML IV SCH (20:00)
[2020-10-19] MEDS ORDERED: Insulin GLARGINE 100 un/ml 10 ml VIAL SUBCUT SCH (21:00)
[2020-10-19] MEDS ORDERED: PRAVASTATIN 40 MG PO SCH (21:00)
[2020-10-20] MEDS: Enoxaparin 60 MG/0.6 ML SYR SUBCUT SCH ×2 (03:08→13:36)
[2020-10-20 04:40] LABS: INR 1.16 (0.86-1.15)
[2020-10-20 04:50] LABS: Albumin/Globulin Ratio 0.9 (1-3); Calcium 8.3 mg/dL (8.6-10.3); EGFR African American 93.9 (>60); EGFR Non-African American 77.6 (>60); Globulin 3.3 g/dL (2-4); Potassium 4.8 mmol/L (3.5-5.0); Total Bilirubin 0.3 mg/dL (0.2-1.0); Total Protein 6.3 g/dL (6.4-8.9)
[2020-10-20] MEDS: Remdesivir 100 mg Vial 100 MG in NS 0.9% 250 ml 230 ML IV SCH (09:10)
[2020-10-20] MEDS: Aspirin EC 81 mg TAB.EC (enteric coated) PO SCH (09:11)
[2020-10-20] MEDS ORDERED: Senna TAB 8.6 mg TAB PO PRN (20:49)
[2020-10-20] MEDS ORDERED: Magnesium Hydroxide LIQ 30 ML UDC PO PRN (20:49)
[2020-10-20] MEDS ORDERED: Insulin GLARGINE 100 un/ml 10 ml VIAL SUBCUT SCH (21:00)
[2020-10-20] MEDS: Polyethylene Glycol 3350 17 GM PACKET PO SCH (22:00)
[2020-10-21] MEDS: Enoxaparin 60 MG/0.6 ML SYR SUBCUT SCH ×2 (02:28→12:18)
[2020-10-21 04:49] LABS: Albumin 3.1 g/dL (3.2-5.2); Albumin/Globulin Ratio 0.9 (1-3); Calcium 8.3 mg/dL (8.6-10.3); EGFR African American 92.8 (>60); EGFR Non-African American 76.7 (>60); Globulin 3.3 g/dL (2-4); Total Bilirubin 0.3 mg/dL (0.2-1.0); Total Protein 6.4 g/dL (6.4-8.9)
[2020-10-21 04:55] LABS: INR 1.16 (0.86-1.15)
[2020-10-21 04:56] LABS: Potassium 5.1 mmol/L (3.5-5.0)
[2020-10-21 07:22] LABS: ABS Lymphocytes 1.1 10^3/ul (1.0-4.8); ABS Monocytes 0.2 10^3/ul (0-0.8); ABS Neutrophils 4.6 10^3/ul (1.5-7.7); Eosinophil % 0.1 %; Hematocrit 35 % (42-52); Hemoglobin 11.7 g/dL (14.0-18.0); Lymphocyte % 17.7 %; Mean Corpuscular HGB Conc 34 g/dL (31-36); Mean Corpuscular Hemoglobin 31 pg (27-31); Mean Corpuscular Volume 91 fL (80-94); Mean Platelet Volume 7.3 fL (7.4-10.4); Nucleated Red Blood Cells % 0.2; Platelet Count 243 10^3/uL (150-450); Red Blood Count 3.85 10^6 /uL (4.18-5.48); Red Cell Distribution Width 15 % (10-15)
[2020-10-21] MEDS: Polyethylene Glycol 3350 17 GM PACKET PO SCH (08:56)
[2020-10-21] MEDS: Aspirin EC 81 mg TAB.EC (enteric coated) PO SCH (08:57)
[2020-10-21] MEDS: Remdesivir 100 mg Vial 100 MG in NS 0.9% 250 ml 230 ML IV SCH (12:18)
[2020-10-21 12:30] VITALS: BP 120/63
[2020-10-21 13:01] LABS: Calcium 8.3 mg/dL (8.6-10.3); EGFR African American 90.5 (>60); EGFR Non-African American 74.8 (>60)
[2020-10-21 13:02] LABS: Potassium 5.1 mmol/L (3.5-5.0)
== END 2020-10-21 16:50 | disposition home or self-care (01) | DRG 179 ==
LOC: ED 15:51 → MED 10-19 01:36 → SUATTDRO 10-19 01:36 → MED 10-19 05:12
PROVIDERS: ADMIT Student in an Organized Health Care Education/Training Program; ATTEND Internal Medicine

== ENCOUNTER 2020-10-21 20:52 | Observation (INO) ==
[2020-10-21] MEDS ORDERED: Albuterol HFA INHALER 8 gm MDI INH ONE (22:58)
[2020-10-21] MEDS ORDERED: Dexamethasone IV 4 MG/ML VIAL 1 ml VIAL IV SLOW PU ONE (22:58)
[2020-10-21 23:03] LABS: ABS Lymphocytes 1.7 10^3/ul (1.0-4.8); ABS Monocytes 0.8 10^3/ul (0-0.8); Hematocrit 38 % (42-52); Hemoglobin 12.4 g/dL (14.0-18.0); Lymphocyte % 16.3 %; Mean Corpuscular HGB Conc 33 g/dL (31-36); Mean Corpuscular Hemoglobin 30 pg (27-31); Mean Corpuscular Volume 91 fL (80-94); Mean Platelet Volume 6.8 fL (7.4-10.4); Platelet Count 264 10^3/uL (150-450); Red Blood Count 4.14 10^6 /uL (4.18-5.48); Red Cell Distribution Width 15 % (10-15); White Blood Count 10.6 10^3/uL (3.5-10.8)
[2020-10-21 23:11] LABS: Activated Partial Thrombo Time 30.6 seconds (26.0-38.0); INR 1.15 (0.86-1.15)
[2020-10-21 23:18] LABS: LDH 182 U/L (140-271)
[2020-10-21 23:19] LABS: ALT 21 U/L (7-52); AST 29 U/L (13-39); Albumin 3.3 g/dL (3.2-5.2); Alkaline Phosphatase 70 U/L (35-149); Anion Gap 5 mmol/L (2-11); Blood Urea Nitrogen 31 mg/dL (6-24); C Reactive Protein 8.42 mg/L (<8.01); CO2 Carbon Dioxide 28 mmol/L (22-32); Calcium 8.4 mg/dL (8.6-10.3); Chloride 98 mmol/L (101-111); EGFR African American 97.6 (>60); EGFR Non-African American 80.7 (>60); Globulin 3.4 g/dL (2-4); Glucose 230 mg/dL (70-100); Potassium 4.5 mmol/L (3.5-5.0); Sodium 131 mmol/L (135-145); Total Protein 6.7 g/dL (6.4-8.9)
[2020-10-21 23:35] LABS: Troponin I 0.04 ng/mL (<0.03)
[2020-10-21 23:39] LABS: Ferritin 530.6 ng/mL (24-336)
[2020-10-22] MEDS ORDERED: Furosemide 20 mg/2 ml IV VIAL IV ONE (02:25)
[2020-10-22] MEDS: Enoxaparin 40 MG/0.4 ML SYR SUBCUT SCH (08:13)
[2020-10-22] MEDS: Aspirin EC 81 mg TAB.EC (enteric coated) PO SCH (08:13)
[2020-10-22 08:50] LABS: Venous Bicarbonate HCO3 28.7 mmol/L (24-28)
[2020-10-22] MEDS ORDERED: Insulin GLARGINE 100 un/ml 10 ml VIAL SUBCUT SCH ×2 (21:00)
[2020-10-22] MEDS ORDERED: CMCS: Pravastatin 20 mg TAB (NF) PO SCH (21:00)
[2020-10-23] MEDS: Enoxaparin 40 MG/0.4 ML SYR SUBCUT SCH (05:09)
[2020-10-23] MEDS ORDERED: Polyethylene Glycol 3350 17 GM PACKET PO ONE (09:12)
[2020-10-23] MEDS: Aspirin EC 81 mg TAB.EC (enteric coated) PO SCH (09:30)
[2020-10-23 12:07] VITALS: BP 128/67
== END 2020-10-23 15:00 | disposition home or self-care (01) ==
LOC: ED 20:52 → MED 20:52 → SUATTDRO 10-22 06:39 → MED 10-22 07:16
PROVIDERS: ADMIT Hospitalist; ATTEND Internal Medicine

== ENCOUNTER 2020-10-23 22:14 | Inpatient (IN) ==
[2020-10-23 23:21] LABS: ABS Lymphocytes 1.4 10^3/ul (1.0-4.8); ABS Monocytes 0.8 10^3/ul (0-0.8); ABS Neutrophils 10.7 10^3/ul (1.5-7.7); Hematocrit 39 % (42-52); Hemoglobin 12.8 g/dL (14.0-18.0); Lymphocyte % 10.6 %; Mean Corpuscular HGB Conc 33 g/dL (31-36); Mean Corpuscular Hemoglobin 30 pg (27-31); Mean Corpuscular Volume 91 fL (80-94); Mean Platelet Volume 7.4 fL (7.4-10.4); Nucleated Red Blood Cells % 0.1; Platelet Count 306 10^3/uL (150-450); Red Blood Count 4.22 10^6 /uL (4.18-5.48); Red Cell Distribution Width 14 % (10-15); White Blood Count 12.9 10^3/uL (3.5-10.8)
[2020-10-23 23:32] LABS: ALT 28 U/L (7-52); AST 29 U/L (13-39); Albumin 3.4 g/dL (3.2-5.2); Alkaline Phosphatase 69 U/L (35-149); Anion Gap 6 mmol/L (2-11); Blood Urea Nitrogen 27 mg/dL (6-24); CO2 Carbon Dioxide 27 mmol/L (22-32); Calcium 8.7 mg/dL (8.6-10.3); Chloride 96 mmol/L (101-111); EGFR African American 97.6 (>60); EGFR Non-African American 80.7 (>60); Globulin 3.3 g/dL (2-4); Glucose 273 mg/dL (70-100); Potassium 4.4 mmol/L (3.5-5.0); Sodium 129 mmol/L (135-145); Total Protein 6.7 g/dL (6.4-8.9)
[2020-10-23 23:37] LABS: Troponin I 0.05 ng/mL (<0.03)
[2020-10-23] MEDS ORDERED: Iodixanol (CONTRAST) 320 MG/ML 100 ML SDV IV ONE (23:44)
[2020-10-24] MEDS ORDERED: Dextrose 50% Syringe 50 ml 25 GM/50 ML SYRINGE IV PUSH PRN (01:20)
[2020-10-24] MEDS: Enoxaparin 40 MG/0.4 ML SYR SUBCUT SCH ×3 (02:18→20:49)
[2020-10-24] MEDS: Remdesivir 100 mg Vial 100 MG in NS 0.9% 250 ml 230 ML IV SCH ×2 (02:18→21:35)
[2020-10-24 03:10] LABS: Rapid COVID-19 Molecular Detected (Undetected)
[2020-10-24 05:45] LABS: ABS Lymphocytes 1.8 10^3/ul (1.0-4.8); ABS Monocytes 0.8 10^3/ul (0-0.8); ABS Neutrophils 9.1 10^3/ul (1.5-7.7); Hematocrit 37 % (42-52); Hemoglobin 12.4 g/dL (14.0-18.0); Lymphocyte % 15.6 %; Mean Corpuscular HGB Conc 34 g/dL (31-36); Mean Corpuscular Hemoglobin 30 pg (27-31); Mean Corpuscular Volume 90 fL (80-94); Mean Platelet Volume 7.3 fL (7.4-10.4); Platelet Count 276 10^3/uL (150-450); Red Blood Count 4.11 10^6 /uL (4.18-5.48); Red Cell Distribution Width 15 % (10-15); White Blood Count 11.6 10^3/uL (3.5-10.8)
[2020-10-24 05:57] LABS: Anion Gap 7 mmol/L (2-11); Blood Urea Nitrogen 24 mg/dL (6-24); CO2 Carbon Dioxide 28 mmol/L (22-32); Chloride 98 mmol/L (101-111); Glucose 194 mg/dL (70-100); Potassium 4.2 mmol/L (3.5-5.0); Sodium 133 mmol/L (135-145)
[2020-10-24 05:58] LABS: ALT 25 U/L (7-52); AST 23 U/L (13-39); Albumin 3.2 g/dL (3.2-5.2); Alkaline Phosphatase 73 U/L (35-149); Calcium 8.7 mg/dL (8.6-10.3); EGFR African American 101.6 (>60); EGFR Non-African American 83.9 (>60); Globulin 3.3 g/dL (2-4); Total Protein 6.5 g/dL (6.4-8.9)
[2020-10-24 06:05] LABS: Troponin I 0.05 ng/mL (<0.03)
[2020-10-24 06:09] LABS: Urine Appearance Clear; Urine Bilirubin Negative (Negative); Urine Blood 1+ (Negative); Urine Color Yellow; Urine Glucose 1+(50 mg/dL) (Negative); Urine Ketones Negative (Negative); Urine Nitrite Negative (Negative); Urine Protein 1+(30 mg/dL) (Negative); Urine Specific Gravity 1.018 (1.002-1.030); Urine Urobilinogen Negative (Negative)
[2020-10-24 06:23] LABS: Urine Bacteria Absent (Absent); Urine Red Blood Cell Trace(0-2/hpf) (Absent); Urine White Blood Cell Absent (Absent)
[2020-10-24] MEDS: Albuterol HFA INHALER 8 gm MDI INH PRN ×2 (08:11→21:30)
[2020-10-24] MEDS: Aspirin EC 81 mg TAB.EC (enteric coated) PO SCH (08:44)
[2020-10-24] MEDS ORDERED: Ondansetron 4 mg VIAL 2 MG/ML 2 ml VIAL IV PRN (13:12)
[2020-10-24] MEDS: Polyethylene Glycol 3350 17 GM PACKET PO PRN (15:50)
[2020-10-24] MEDS ORDERED: Insulin GLARGINE 100 un/ml 10 ml VIAL SUBCUT SCH ×3 (21:00)
[2020-10-24] MEDS: Insulin GLARGINE 100 un/ml 10 ml VIAL SUBCUT SCH (21:40)
[2020-10-25] MEDS: Polyethylene Glycol 3350 17 GM PACKET PO PRN (08:18)
[2020-10-25] MEDS: Aspirin EC 81 mg TAB.EC (enteric coated) PO SCH (08:18)
[2020-10-25] MEDS: Enoxaparin 40 MG/0.4 ML SYR SUBCUT SCH ×2 (08:19→21:43)
[2020-10-25 09:39] LABS: Albumin 3.5 g/dL (3.2-5.2); Albumin/Globulin Ratio 0.9 (1-3); EGFR African American 97.6 (>60); EGFR Non-African American 80.7 (>60); Globulin 3.9 g/dL (2-4); Magnesium 1.6 mg/dL (1.9-2.7); Phosphorus 3.2 mg/dL (2.5-5.0); Potassium 4.7 mmol/L (3.5-5.0); Total Bilirubin 0.5 mg/dL (0.2-1.0); Total Protein 7.4 g/dL (6.4-8.9)
[2020-10-25] MEDS ORDERED: Magnesium Sulfate IV 3 GM in NS 0.9% 100 ml BAG 100 ML IVPB ONE (10:36)
[2020-10-25 10:52] LABS: Troponin I 0.05 ng/mL (<0.03)
[2020-10-25] MEDS: Remdesivir 100 mg Vial 100 MG in NS 0.9% 250 ml 230 ML IV SCH (21:46)
[2020-10-25] MEDS: Insulin GLARGINE 100 un/ml 10 ml VIAL SUBCUT SCH (23:06)
[2020-10-26] MEDS: Enoxaparin 40 MG/0.4 ML SYR SUBCUT SCH ×2 (08:25→21:38)
[2020-10-26] MEDS: Aspirin EC 81 mg TAB.EC (enteric coated) PO SCH (08:25)
[2020-10-26] MEDS: Albuterol HFA INHALER 8 gm MDI INH PRN (10:09)
[2020-10-26] MEDS: Senna TAB 8.6 mg TAB PO PRN (11:45)
[2020-10-26] MEDS: Insulin GLARGINE 100 un/ml 10 ml VIAL SUBCUT SCH (21:35)
[2020-10-26] MEDS: Remdesivir 100 mg Vial 100 MG in NS 0.9% 250 ml 230 ML IV SCH (21:35)
[2020-10-27 06:31] LABS: Albumin/Globulin Ratio 0.9 (1-3); Calcium 8.5 mg/dL (8.6-10.3); EGFR African American 104.3 (>60); EGFR Non-African American 86.2 (>60); Globulin 3.3 g/dL (2-4); Potassium 4.4 mmol/L (3.5-5.0); Total Bilirubin 0.4 mg/dL (0.2-1.0); Total Protein 6.3 g/dL (6.4-8.9)
[2020-10-27] MEDS: Albuterol HFA INHALER 8 gm MDI INH PRN (10:32)
[2020-10-27] MEDS: Polyethylene Glycol 3350 17 GM PACKET PO PRN (10:34)
[2020-10-27] MEDS: Enoxaparin 40 MG/0.4 ML SYR SUBCUT SCH ×2 (10:34→21:34)
[2020-10-27] MEDS: Aspirin EC 81 mg TAB.EC (enteric coated) PO SCH (10:34)
[2020-10-27] MEDS: Insulin GLARGINE 100 un/ml 10 ml VIAL SUBCUT SCH (21:34)
[2020-10-27] MEDS: Senna TAB 8.6 mg TAB PO PRN (21:36)
[2020-10-27] MEDS: Remdesivir 100 mg Vial 100 MG in NS 0.9% 250 ml 230 ML IV SCH (21:36)
[2020-10-28] MEDS: Enoxaparin 40 MG/0.4 ML SYR SUBCUT SCH (08:12)
[2020-10-28] MEDS: Aspirin EC 81 mg TAB.EC (enteric coated) PO SCH (08:12)
[2020-10-28 12:35] VITALS: BP 116/72
== END 2020-10-28 15:50 | disposition home or self-care (01) | DRG 177 ==
LOC: ED 22:14 → MED 22:14 → SUATTDRO 10-24 00:52 → MED 10-24 03:27 → SUATTDRO 10-24 11:00
PROVIDERS: ADMIT Internal Medicine; ATTEND Student in an Organized Health Care Education/Training Program

== ENCOUNTER 2021-04-26 11:11 | Inpatient (IN) ==
[2021-04-26 12:42] LABS: ABS Lymphocytes 1.5 10^3/ul (1.0-4.8); ABS Monocytes 0.3 10^3/ul (0-0.8); ABS Neutrophils 6.9 10^3/ul (1.5-7.7); Eosinophil % 0.4 %; Hematocrit 34 % (42-52); Hemoglobin 11.2 g/dL (14.0-18.0); Lymphocyte % 16.6 %; Mean Corpuscular HGB Conc 33 g/dL (31-36); Mean Corpuscular Hemoglobin 31 pg (27-31); Mean Corpuscular Volume 93 fL (80-94); Mean Platelet Volume 6.7 fL (7.4-10.4); Nucleated Red Blood Cells % 0.1; Platelet Count 341 10^3/uL (150-450); Red Blood Count 3.64 10^6 /uL (4.18-5.48); Red Cell Distribution Width 15 % (10-15); White Blood Count 8.8 10^3/uL (3.5-10.8)
[2021-04-26 12:54] LABS: Activated Partial Thrombo Time 31.4 seconds (26.0-38.0); INR 1.32 (0.86-1.15)
[2021-04-26 13:19] LABS: ALT 22 U/L (7-52); AST 25 U/L (13-39); Alkaline Phosphatase 91 U/L (35-149); Anion Gap 5 mmol/L (2-11); Blood Urea Nitrogen 36 mg/dL (6-24); C Reactive Protein 21.62 mg/L (<8.01); CO2 Carbon Dioxide 26 mmol/L (22-32); Calcium 8.2 mg/dL (8.6-10.3); Chloride 104 mmol/L (101-111); Glucose 127 mg/dL (70-100); Magnesium 1.7 mg/dL (1.9-2.7); Sodium 135 mmol/L (135-145); eGFR CKD-EPI 56.1 (>60)
[2021-04-26 13:32] LABS: TSH Ultra Thyroid Stim Horm 2.22 mcIU/mL (0.34-5.60)
[2021-04-26] MEDS ORDERED: NS 0.9% 1000 ml BAG 1,000 ML IV ONE (14:03)
[2021-04-26] MEDS ORDERED: Diltiazem IV push/loading dose 5 MG/ML 5 ML vial (25 mg) IV SLOW PU ONE ×3 (14:18→15:26)
[2021-04-26 14:20] LABS: Erythrocyte Sed Rate 41 mm/Hr (0-19)
[2021-04-26 14:47] LABS: Urine Appearance Clear; Urine Bilirubin Negative (Negative); Urine Blood 1+ (Negative); Urine Color Yellow; Urine Glucose Negative (Negative); Urine Ketones Negative (Negative); Urine Nitrite Negative (Negative); Urine Protein Negative (Negative); Urine Specific Gravity 1.016 (1.002-1.030); Urine Urobilinogen Negative (Negative)
[2021-04-26 14:51] LABS: Urine Bacteria Absent (Absent); Urine Red Blood Cell 3+(>10/hpf) (Absent); Urine Squamous Epithelial Cell Present (Absent); Urine White Blood Cell Absent (Absent)
[2021-04-26] MEDS ORDERED: Diltiazem IV push/loading dose 5 MG/ML 5 ML vial (25 mg) ONE (15:26)
[2021-04-26 15:49] LABS: High Sensitivity Troponin 1 Hr 33 pg/mL (<20)
[2021-04-26] MEDS ORDERED: Metoprolol Tartrate 5 mg VIAL 5 ml VIAL (1 mg/ml) IV ONE ×2 (16:53→21:08)
[2021-04-26] MEDS ORDERED: Digoxin IV 0.5 MG/2 ML AMP (0.25 MG/ML) IV SLOW PU ONE (17:43)
[2021-04-26] MEDS ORDERED: Dextrose 50% Syringe 50 ml 25 GM/50 ML SYRINGE IV PUSH PRN (18:30)
[2021-04-26 20:46] LABS: Free T4 0.98 ng/dL (0.61-1.12)
[2021-04-26] MEDS ORDERED: Magnesium Sulfate IV 3 GM in NS 0.9% 100 ml BAG 100 ML IVPB ONE (21:10)
[2021-04-26] MEDS ORDERED: NS 0.9% 1000 ml BAG 1,000 ML IV SCH (21:15)
[2021-04-26] MEDS ORDERED: Magnesium Sulfate 2 GM IV (Premix) IVPB ONE (22:00)
[2021-04-26 22:18] LABS: RBC Morphology Normal (Normal)
[2021-04-26 22:28] LABS: RBC Parasite Smear No Parasites Seen (No Parasite)
[2021-04-26] MEDS ORDERED: NS 0.9% 500 ML BAG IV ONE (23:00)
[2021-04-26] MEDS ORDERED: Magnesium Sulfate 1 GM IV 1 GM/100 ML BAG IV ONE (23:00)
[2021-04-27] MEDS ORDERED: Metoprolol Tartrate 5 mg VIAL 5 ml VIAL (1 mg/ml) IV ONE (02:55)
[2021-04-27 06:27] LABS: Calcium 8.1 mg/dL (8.6-10.3); Magnesium 2.2 mg/dL (1.9-2.7); Potassium 4.5 mmol/L (3.5-5.0); eGFR CKD-EPI 61.5 (>60)
[2021-04-27] MEDS ORDERED: Digoxin IV 0.5 MG/2 ML AMP (0.25 MG/ML) IV SLOW PU ONE (07:54)
[2021-04-27 08:08] LABS: ABS Lymphocytes 1.9 10^3/ul (1.0-4.8); ABS Monocytes 0.3 10^3/ul (0-0.8); ABS Neutrophils 4.1 10^3/ul (1.5-7.7); Eosinophil % 0.5 %; Hematocrit 32 % (42-52); Hemoglobin 10.4 g/dL (14.0-18.0); Mean Corpuscular HGB Conc 33 g/dL (31-36); Mean Corpuscular Hemoglobin 31 pg (27-31); Mean Corpuscular Volume 95 fL (80-94); Mean Platelet Volume 7.4 fL (7.4-10.4); Platelet Count 307 10^3/uL (150-450); Red Blood Count 3.34 10^6 /uL (4.18-5.48); Red Cell Distribution Width 14 % (10-15); White Blood Count 6.4 10^3/uL (3.5-10.8)
[2021-04-27] MEDS: Aspirin EC 81 mg TAB.EC (enteric coated) PO SCH (08:45)
[2021-04-27] MEDS ORDERED: PRAVASTATIN 40 MG PO SCH (09:00)
[2021-04-27] MEDS: Pravastatin 20 mg TAB (NF) PO SCH (09:25)
[2021-04-27] MEDS ORDERED: Diltiazem (ADVAN VIAL) 100 MG/100 ML ADDV.BAG IV SCH (15:00)
[2021-04-27] MEDS ORDERED: NS 0.9% 500 ml BAG 500 ML IV SCH (21:00)
[2021-04-28 05:35] LABS: ABS Monocytes 0.1 10^3/ul (0-0.8); ABS Neutrophils 3.8 10^3/ul (1.5-7.7); Eosinophil % 0.1 %; Hematocrit 31 % (42-52); Hemoglobin 10.4 g/dL (14.0-18.0); Lymphocyte % 20.2 %; Mean Corpuscular HGB Conc 34 g/dL (31-36); Mean Corpuscular Hemoglobin 31 pg (27-31); Mean Corpuscular Volume 94 fL (80-94); Platelet Count 282 10^3/uL (150-450); Red Cell Distribution Width 15 % (10-15)
[2021-04-28 06:32] LABS: Calcium 8.1 mg/dL (8.6-10.3); eGFR CKD-EPI 56.7 (>60)
[2021-04-28 06:39] LABS: Potassium 5.2 mmol/L (3.5-5.0)
[2021-04-28] MEDS: Aspirin EC 81 mg TAB.EC (enteric coated) PO SCH (07:28)
[2021-04-28] MEDS: Pravastatin 20 mg TAB (NF) PO SCH (08:24)
[2021-04-28 11:17] LABS: Digoxin 0.6 ng/ml (0.8-2.0)
[2021-04-28 18:01] LABS: Hepatitis B Surface Antigen Nonreactive (Nonreactive)
[2021-04-28 18:06] LABS: Hepatitis A Ab IgM Negative (Negative)
[2021-04-28 18:07] LABS: Hepatitis B Core IgM Nonreactive (Nonreactive)
[2021-04-28 18:19] LABS: Hepatitis C Antibody Negative (Negative)
[2021-04-29 07:12] LABS: ABS Lymphocytes 1.8 10^3/ul (1.0-4.8); ABS Monocytes 0.4 10^3/ul (0-0.8); ABS Neutrophils 6.5 10^3/ul (1.5-7.7); Eosinophil % 0.1 %; Hematocrit 31 % (42-52); Hemoglobin 10.6 g/dL (14.0-18.0); Lymphocyte % 20.7 %; Mean Corpuscular HGB Conc 34 g/dL (31-36); Mean Corpuscular Hemoglobin 32 pg (27-31); Mean Corpuscular Volume 93 fL (80-94); Mean Platelet Volume 7.3 fL (7.4-10.4); Platelet Count 314 10^3/uL (150-450); Red Blood Count 3.36 10^6 /uL (4.18-5.48); Red Cell Distribution Width 15 % (10-15); White Blood Count 8.8 10^3/uL (3.5-10.8)
[2021-04-29 07:35] LABS: Albumin/Globulin Ratio 0.9 (1-3); Calcium 8.6 mg/dL (8.6-10.3); Globulin 3.2 g/dL (2-4); Magnesium 1.9 mg/dL (1.9-2.7); Total Bilirubin 0.5 mg/dL (0.2-1.0); Total Protein 6.2 g/dL (6.4-8.9); eGFR CKD-EPI 58.4 (>60)
[2021-04-29 08:08] LABS: Potassium 5.4 mmol/L (3.5-5.0)
[2021-04-29] MEDS ORDERED: Insulin GLARGINE 100 un/ml 10 ml VIAL SUBCUT SCH (09:00)
[2021-04-29] MEDS: Aspirin EC 81 mg TAB.EC (enteric coated) PO SCH (09:42)
[2021-04-29] MEDS: Pravastatin 20 mg TAB (NF) PO SCH (09:42)
[2021-04-29] MEDS ORDERED: Metoprolol Tartrate 5 mg VIAL 5 ml VIAL (1 mg/ml) IV ONE ×4 (11:11→22:29)
[2021-04-29] MEDS ORDERED: Metoprolol Tartrate 5 mg VIAL 5 ml VIAL (1 mg/ml) ONE (11:15)
[2021-04-29 15:54] LABS: SS-A/Ro Antibody <0.2 U; SS-B/La Antibody <0.2 U
[2021-04-29 21:22] LABS: Anaplasma phagocytophilum Negative (Negative); B. miyamotoi PCR, B Negative (Negative); Babesia divergens/MO-1 Negative (Negative); Babesia ducani Negative (Negative); Ehrlichia chaffeensis Negative (Negative); Ehrlichia ewingii/canis Negative (Negative); Ehrlichia muris eauclairensis Negative (Negative)
[2021-04-30] MEDS ORDERED: Digoxin IV 0.5 MG/2 ML AMP (0.25 MG/ML) IV SLOW PU ONE ×2 (00:23→13:18)
[2021-04-30 06:46] LABS: ABS Basophils 0.1 10^3/ul (0-0.2); ABS Lymphocytes 2.1 10^3/ul (1.0-4.8); ABS Monocytes 0.6 10^3/ul (0-0.8); ABS Neutrophils 6.8 10^3/ul (1.5-7.7); Eosinophil % 0.2 %; Hematocrit 36 % (42-52); Lymphocyte % 21.6 %; Mean Corpuscular HGB Conc 33 g/dL (31-36); Mean Corpuscular Hemoglobin 31 pg (27-31); Mean Corpuscular Volume 94 fL (80-94); Platelet Count 331 10^3/uL (150-450); Red Blood Count 3.81 10^6 /uL (4.18-5.48); Red Cell Distribution Width 15 % (10-15); White Blood Count 9.6 10^3/uL (3.5-10.8)
[2021-04-30 07:23] LABS: C Reactive Protein 8.98 mg/L (<8.01); Calcium 8.8 mg/dL (8.6-10.3); Phosphorus 3.8 mg/dL (2.5-5.0)
[2021-04-30 08:09] LABS: Potassium 5.2 mmol/L (3.5-5.0)
[2021-04-30] MEDS: Pravastatin 20 mg TAB (NF) PO SCH (08:50)
[2021-04-30] MEDS: Aspirin EC 81 mg TAB.EC (enteric coated) PO SCH (08:51)
[2021-04-30] MEDS ORDERED: Diltiazem IV push/loading dose 5 MG/ML 5 ML vial (25 mg) IV SLOW PU ONE (12:14)
[2021-04-30] MEDS ORDERED: Furosemide 20 mg/2 ml IV VIAL IV ONE (12:15)
[2021-04-30 12:57] LABS: Digoxin 0.6 ng/ml (0.8-2.0)
[2021-05-01 05:50] LABS: ABS Basophils 0.1 10^3/ul (0-0.2); ABS Lymphocytes 2.2 10^3/ul (1.0-4.8); ABS Monocytes 0.5 10^3/ul (0-0.8); ABS Neutrophils 5.7 10^3/ul (1.5-7.7); Eosinophil % 0.6 %; Hematocrit 35 % (42-52); Hemoglobin 11.5 g/dL (14.0-18.0); Lymphocyte % 26.3 %; Mean Corpuscular HGB Conc 33 g/dL (31-36); Mean Corpuscular Hemoglobin 31 pg (27-31); Mean Corpuscular Volume 94 fL (80-94); Nucleated Red Blood Cells % 0.1; Platelet Count 286 10^3/uL (150-450); Red Blood Count 3.68 10^6 /uL (4.18-5.48); Red Cell Distribution Width 15 % (10-15); White Blood Count 8.5 10^3/uL (3.5-10.8)
[2021-05-01 06:06] LABS: Calcium 8.7 mg/dL (8.6-10.3); Digoxin 0.6 ng/ml (0.8-2.0); eGFR CKD-EPI 51.1 (>60)
[2021-05-01 06:11] LABS: Potassium 5.1 mmol/L (3.5-5.0)
[2021-05-01] MEDS: Aspirin EC 81 mg TAB.EC (enteric coated) PO SCH (08:24)
[2021-05-01] MEDS: Pravastatin 20 mg TAB (NF) PO SCH (10:52)
[2021-05-01 11:44] LABS: Anti SSA/RO Antibody <0.2 U; Sm (Smith) IgG Antibody <0.2 U; U1 RNP IgG Autoabs <0.2 U
[2021-05-01 12:30] LABS: C-ANCA Negative (Negative); P-ANCA Negative (Negative)
[2021-05-01 13:00] LABS: Complement C3 115 mg/dL (75 - 175)
[2021-05-01 13:52] LABS: Cryoglobulin Negative %ppt (Negative)
[2021-05-01] MEDS ORDERED: Midazolam 5 mg/5 ml VIAL 1 mg/ml 5 ml VIAL (5 mg) ONE (13:52)
[2021-05-01] MEDS ORDERED: Flumazenil 0.5 mg/5 ml 0.1 MG/ML 5 ml VIAL ONE (13:52)
[2021-05-01] MEDS ORDERED: fentaNYL 100 mcg/2 ml 50 MCG/ML VIAL ONE (13:52)
[2021-05-01] MEDS ORDERED: Naloxone 0.4 mg VIAL 0.4 mg/ml 1 ml VIAL ONE (13:52)
[2021-05-01 18:33] LABS: Complement CH50 63 U/mL (30-75)
[2021-05-02 05:28] LABS: Calcium 8.5 mg/dL (8.6-10.3); Magnesium 1.7 mg/dL (1.9-2.7); eGFR CKD-EPI 62.8 (>60)
[2021-05-02] MEDS ORDERED: Magnesium Sulfate 2 gm BAG 2 GM/50 ML BAG IVPB ONE (05:44)
[2021-05-02] MEDS: Aspirin EC 81 mg TAB.EC (enteric coated) PO SCH (09:04)
[2021-05-02] MEDS: Pravastatin 20 mg TAB (NF) PO SCH (09:05)
[2021-05-02 22:22] LABS: HIV 4th Generation Nonreactive (Nonreactive)
[2021-05-03] MEDS: Pravastatin 20 mg TAB (NF) PO SCH (10:50)
[2021-05-03] MEDS: Aspirin EC 81 mg TAB.EC (enteric coated) PO SCH (10:50)
[2021-05-03 17:37] VITALS: BP 115/67
== END 2021-05-03 14:00 | disposition home or self-care (01) | DRG 309 ==
LOC: ED 11:11 → EDHOLD 18:22 → SUATTDRO 18:22 → MEDTELE 20:01 → ICU 04-27 14:35 → MEDTELE 04-28 19:58 → ICU 04-30 11:02 → MEDTELE 05-02 13:06
PROVIDERS: ADMIT Internal Medicine; ATTEND Internal Medicine

== ENCOUNTER 2021-09-02 11:17 | Inpatient (IN) ==
[2021-09-02] MEDS ORDERED: Lactated Ringers 1000 ml BAG 1,000 ML IV ONE ×3 (11:31→15:33)
[2021-09-02 12:08] LABS: High Sens Troponin Baseline 47 pg/mL (<20); INR 1.74 (0.89-1.11)
[2021-09-02 12:31] LABS: ALT 14 U/L (7-52); Albumin 3.9 g/dL (3.2-5.2); Albumin/Globulin Ratio 1.1 (1-3); Alkaline Phosphatase 64 U/L (35-149); Blood Urea Nitrogen 55 mg/dL (6-24); CO2 Carbon Dioxide 26 mmol/L (22-32); Calcium 9.3 mg/dL (8.6-10.3); Chloride 99 mmol/L (101-111); Globulin 3.5 g/dL (2-4); Glucose 191 mg/dL (70-100); Sodium 131 mmol/L (135-145); Total Protein 7.4 g/dL (6.4-8.9); eGFR CKD-EPI 28.1 (>60)
[2021-09-02 12:34] LABS: Anion Gap 6 mmol/L (2-11)
[2021-09-02 13:14] LABS: ABS Basophils 0.1 10^3/ul (0-0.2); ABS Eosinophils 0.3 10^3/ul (0-0.6); ABS Lymphocytes 3.3 10^3/ul (1.0-4.8); ABS Monocytes 0.7 10^3/ul (0-0.8); ABS Neutrophils 5.7 10^3/ul (1.5-7.7); Eosinophil % 2.9 %; Hematocrit 32 % (42-52); Hemoglobin 10.6 g/dL (14.0-18.0); Lymphocyte % 33.3 %; Mean Corpuscular HGB Conc 33 g/dL (31-36); Mean Corpuscular Hemoglobin 31 pg (27-31); Mean Corpuscular Volume 93 fL (80-94); Mean Platelet Volume 6.9 fL (7.4-10.4); Platelet Count 240 10^3/uL (150-450); Red Blood Count 3.45 10^6 /uL (4.18-5.48); Red Cell Distribution Width 14 % (10-15)
[2021-09-02 13:39] LABS: High Sensitivity Troponin 1 Hr 43 pg/mL (<20)
[2021-09-02 13:48] LABS: Calcium 8.2 mg/dL (8.6-10.3); eGFR CKD-EPI 31.9 (>60)
[2021-09-02 13:55] LABS: Potassium 6.1 mmol/L (3.5-5.0)
[2021-09-02] MEDS ORDERED: Albuterol (2.5 MG) 0.5 % CONC 0.5 ML NEB.SOLN INH ONE (13:56)
[2021-09-02] MEDS ORDERED: Dextrose 50% Syringe 50 ml 25 GM/50 ML SYRINGE IV PUSH PRN ×2 (13:56→21:50)
[2021-09-02] MEDS ORDERED: Albuterol 2.5mg/3 ml (0.083%) NEB.SOLN INH ONE (14:39)
[2021-09-02] MEDS ORDERED: CALCIUM GLUCONATE 1GM/50ML NS 1 GM/50 ML BAG IV ONE (15:22)
[2021-09-02 15:25] LABS: PCO2 Arterial 46 mmHg (35-45); PO2 Arterial 132 mmHg (80-100)
[2021-09-02 15:28] LABS: Magnesium 1.6 mg/dL (1.9-2.7)
[2021-09-02] MEDS: SODIUM ZIRCONIUM CYCLOSILICATE 5 GM PACKET PO SCH (15:53)
[2021-09-02 16:50] LABS: eGFR CKD-EPI 39.2 (>60)
[2021-09-02 16:53] LABS: Potassium 5.3 mmol/L (3.5-5.0)
[2021-09-02 17:53] LABS: Ur Urea Nitrogen Concentration 648 mg/dL; Urine Creatinine Concentration 114.31 mg/dL
[2021-09-02 19:21] LABS: BUN Serum 53 mg/dL (6-24)
[2021-09-02 20:20] LABS: Urine Color Yellow
[2021-09-02 20:21] LABS: Urine Appearance Clear; Urine Bilirubin Negative (Negative); Urine Blood Negative (Negative); Urine Glucose Negative (Negative); Urine Ketones Negative (Negative); Urine Nitrite Negative (Negative); Urine Protein Negative (Negative); Urine Specific Gravity 1.025 (1.005-1.030); Urine Urobilinogen 0.2 (Negative) (Negative)
[2021-09-03 01:53] LABS: Calcium 8.7 mg/dL (8.6-10.3); Potassium 5.7 mmol/L (3.5-5.0)
[2021-09-03 01:59] LABS: eGFR CKD-EPI 34.4 (>60)
[2021-09-03] MEDS ORDERED: Dextrose 50% Syringe 50 ml 25 GM/50 ML SYRINGE IV PUSH ONE (03:36)
[2021-09-03] MEDS ORDERED: Lactated Ringers 500 ml BAG 500 ML IV ONE (03:36)
[2021-09-03] MEDS: SODIUM ZIRCONIUM CYCLOSILICATE 5 GM PACKET PO SCH (09:04)
[2021-09-03] MEDS: CMCS:Pravastatin 20 mg TAB (NF) PO SCH (09:04)
[2021-09-03] MEDS: Aspirin EC 81 mg TAB.EC (enteric coated) PO SCH (09:04)
[2021-09-03 11:29] LABS: eGFR CKD-EPI 40.3 (>60)
[2021-09-03 11:38] LABS: Potassium 5.9 mmol/L (3.5-5.0)
[2021-09-03] MEDS ORDERED: Sodium Polystyrene ORAL.SUSP 15 GM/60 ML BTL PO ONE (12:03)
[2021-09-03] MEDS ORDERED: NS 0.9% 1000 ml BAG 1,000 ML IV ONE (16:08)
[2021-09-03 18:05] LABS: Blood Urea Nitrogen 45 mg/dL (6-24); CO2 Carbon Dioxide 28 mmol/L (22-32); Calcium 9.1 mg/dL (8.6-10.3); Chloride 101 mmol/L (101-111); Glucose 161 mg/dL (70-100); Sodium 134 mmol/L (135-145); eGFR CKD-EPI 40.3 (>60)
[2021-09-03 21:39] LABS: Anion Gap 5 mmol/L (2-11)
[2021-09-04] MEDS ORDERED: SODIUM ZIRCONIUM CYCLOSILICATE 10 GM PACKET PO ONE (02:46)
[2021-09-04 05:56] LABS: Calcium 8.6 mg/dL (8.6-10.3); eGFR CKD-EPI 45.3 (>60)
[2021-09-04] MEDS ORDERED: SODIUM ZIRCONIUM CYCLOSILICATE 5 GM PACKET PO SCH (06:00)
[2021-09-04 06:45] LABS: Potassium 5.2 mmol/L (3.5-5.0)
[2021-09-04] MEDS: Aspirin EC 81 mg TAB.EC (enteric coated) PO SCH (09:10)
[2021-09-04] MEDS: CMCS:Pravastatin 20 mg TAB (NF) PO SCH (09:13)
[2021-09-04] MEDS ORDERED: NS 0.9% 1000 ml BAG 1,000 ML IV ONE ×2 (11:25→17:10)
[2021-09-05 06:14] LABS: Calcium 8.6 mg/dL (8.6-10.3); eGFR CKD-EPI 57.2 (>60)
[2021-09-05] MEDS ORDERED: Aminophylline 25 MG/ML VIAL ONE ×2 (07:58→08:08)
[2021-09-05] MEDS ORDERED: Regadenoson 0.4 MG/5 ML SYRINGE ONE (07:58)
[2021-09-05] MEDS: CMCS:Pravastatin 20 mg TAB (NF) PO SCH (10:28)
[2021-09-05] MEDS: Aspirin EC 81 mg TAB.EC (enteric coated) PO SCH (10:28)
[2021-09-05 13:07] VITALS: BP 118/67
[2021-09-11 16:59] LABS: Renin 5.2 ng/mL/h
== END 2021-09-05 12:44 | disposition home or self-care (01) | DRG 684 ==
LOC: ED 11:17 → EDHOLD 14:27 → SUATTDRO 14:27 → MEDTELE 17:34
PROVIDERS: ADMIT Internal Medicine; ATTEND Hospitalist

== ENCOUNTER 2021-12-28 17:47 | Observation (INO) ==
[2021-12-28 19:02] LABS: ABS Lymphocytes 1.8 10^3/ul (1.0-4.8); ABS Monocytes 0.7 10^3/ul (0-0.8); ABS Neutrophils 9.5 10^3/ul (1.5-7.7); Eosinophil % 0.3 %; Hematocrit 37 % (42-52); Hemoglobin 12.3 g/dL (14.0-18.0); Lymphocyte % 14.5 %; Mean Corpuscular HGB Conc 33 g/dL (31-36); Mean Corpuscular Hemoglobin 31 pg (27-31); Mean Corpuscular Volume 93 fL (80-94); Mean Platelet Volume 6.7 fL (7.4-10.4); Platelet Count 267 10^3/uL (150-450); Red Blood Count 3.96 10^6 /uL (4.18-5.48); Red Cell Distribution Width 13 % (10-15)
[2021-12-28 19:29] LABS: Albumin 4.1 g/dL (3.2-5.2); Albumin/Globulin Ratio 1.3 (1-3); C Reactive Protein 7.34 mg/L (<8.01); Calcium 9.3 mg/dL (8.6-10.3); Globulin 3.2 g/dL (2-4); Total Bilirubin 0.6 mg/dL (0.2-1.0); Total Protein 7.3 g/dL (6.4-8.9); eGFR CKD-EPI 68.6 (>60)
[2021-12-28 19:31] LABS: Potassium 5.8 mmol/L (3.5-5.0)
[2021-12-28 21:09] LABS: Urine Appearance Clear; Urine Bilirubin Negative (Negative); Urine Blood 1+ (Negative); Urine Color Yellow; Urine Glucose 1+(50 mg/dL) (Negative); Urine Ketones Negative (Negative); Urine Nitrite Negative (Negative); Urine Protein 1+(30 mg/dL) (Negative); Urine Specific Gravity 1.015 (1.002-1.030); Urine Urobilinogen Negative (Negative)
[2021-12-28 21:13] LABS: Urine Bacteria Absent (Absent); Urine Red Blood Cell 2+(6-10/hpf) (Absent); Urine Squamous Epithelial Cell Present (Absent); Urine White Blood Cell Trace(0-5/hpf) (Absent)
[2021-12-28] MEDS ORDERED: Piperacillin/Tazobac ADVAN 3.375 GM in NS 0.9% 100 ml BAG 100 ML IV ONE (21:50)
[2021-12-28] MEDS ORDERED: Lactated Ringers SEPSIS* BAG 1,640 ML IV ONE (21:50)
[2021-12-28] MEDS ORDERED: Vancomycin 1,250 MG in NS 0.9% 250 ml 250 ML IVPB ONE (22:00)
[2021-12-29 02:00] LABS: Calcium 8.7 mg/dL (8.6-10.3)
[2021-12-29 02:04] LABS: Potassium 5.7 mmol/L (3.5-5.0)
[2021-12-29] MEDS ORDERED: SODIUM ZIRCONIUM CYCLOSILICATE 10 GM PACKET PO ONE (02:11)
[2021-12-29] MEDS ORDERED: NS 0.9% 1000 ml BAG 1,000 ML IV ONE (02:11)
[2021-12-29] MEDS ORDERED: Dextrose 50% Syringe 50 ml 25 GM/50 ML SYRINGE IV PUSH PRN (02:19)
[2021-12-29 04:35] LABS: ABS Lymphocytes 1.3 10^3/ul (1.0-4.8); ABS Monocytes 0.6 10^3/ul (0-0.8); ABS Neutrophils 8.2 10^3/ul (1.5-7.7); Eosinophil % 0.4 %; Hematocrit 32 % (42-52); Hemoglobin 10.5 g/dL (14.0-18.0); Mean Corpuscular HGB Conc 33 g/dL (31-36); Mean Corpuscular Hemoglobin 31 pg (27-31); Mean Corpuscular Volume 94 fL (80-94); Mean Platelet Volume 6.7 fL (7.4-10.4); Platelet Count 202 10^3/uL (150-450); Red Blood Count 3.42 10^6 /uL (4.18-5.48); Red Cell Distribution Width 13 % (10-15); White Blood Count 10.3 10^3/uL (3.5-10.8)
[2021-12-29 05:03] LABS: eGFR CKD-EPI 62.1 (>60)
[2021-12-29] MEDS ORDERED: cefTRIAXone 2 gm/50 mL D5W 2 GM/50 ML BAG IV SCH (06:00)
[2021-12-29] MEDS: cefTRIAXone 2 GM ADDV.VIAL 2 GM in NS 0.9% 100 ml BAG 100 ML IV SCH (06:03)
[2021-12-29] MEDS: CMCS: Pravastatin 20 mg TAB (NF) PO SCH (09:09)
[2021-12-29] MEDS: Aspirin EC 81 mg TAB.EC (enteric coated) PO SCH (09:10)
[2021-12-30] MEDS: cefTRIAXone 2 GM ADDV.VIAL 2 GM in NS 0.9% 100 ml BAG 100 ML IV SCH (05:07)
[2021-12-30 06:21] LABS: ABS Eosinophils 0.1 10^3/ul (0-0.6); ABS Lymphocytes 1.8 10^3/ul (1.0-4.8); ABS Monocytes 0.4 10^3/ul (0-0.8); ABS Neutrophils 4.3 10^3/ul (1.5-7.7); Eosinophil % 1.1 %; Hematocrit 31 % (42-52); Hemoglobin 10.4 g/dL (14.0-18.0); Lymphocyte % 27.8 %; Mean Corpuscular HGB Conc 33 g/dL (31-36); Mean Corpuscular Hemoglobin 31 pg (27-31); Mean Corpuscular Volume 92 fL (80-94); Mean Platelet Volume 6.8 fL (7.4-10.4); Platelet Count 190 10^3/uL (150-450); Red Blood Count 3.38 10^6 /uL (4.18-5.48); Red Cell Distribution Width 13 % (10-15); White Blood Count 6.6 10^3/uL (3.5-10.8)
[2021-12-30 06:54] LABS: Calcium 8.3 mg/dL (8.6-10.3); Magnesium 1.6 mg/dL (1.9-2.7); Potassium 4.6 mmol/L (3.5-5.0); eGFR CKD-EPI 71.9 (>60)
[2021-12-30] MEDS: CMCS: Pravastatin 20 mg TAB (NF) PO SCH (08:23)
[2021-12-30] MEDS: Aspirin EC 81 mg TAB.EC (enteric coated) PO SCH (08:23)
[2021-12-30 11:05] VITALS: BP 101/61
[2021-12-31 22:23] LABS: Anaplasma phagocytophilum Negative (Negative); B. miyamotoi PCR, B Negative (Negative); Babesia divergens/MO-1 Negative (Negative); Babesia ducani Negative (Negative); Ehrlichia chaffeensis Negative (Negative); Ehrlichia ewingii/canis Negative (Negative); Ehrlichia muris eauclairensis Negative (Negative)
[2022-01-05 13:18] LABS: C-ANCA Negative (Negative); P-ANCA Negative (Negative)
== END 2021-12-30 11:40 | disposition home or self-care (01) ==
LOC: EDHOLD 17:47 → ED 17:47 → SUATTDRO 12-29 02:14 → MED 12-29 15:59
PROVIDERS: ADMIT Student in an Organized Health Care Education/Training Program; ATTEND Internal Medicine